=== PATIENT | female | born 1950 | race Caucasian/White ===

== ENCOUNTER → 2019-10-18 10:52 | Day surgery (SDC) | payer MEDICARE ==
[~2019-10-18 10:52] MED LIST: Buffered Lidocaine 1% SYRIN* 1 ML/SYRINGE INTRADERM ONE; Dexamethasone IV* 4 MG/ML 1 ML (4 MG) ONE; Gelfoam 12-7 ADSORBABL SPONGE* 1 EA SPONGE ONE; Lactated Ringers 1000 ML Bag* 1,000 ML IV SCH; Levalbuterol 1.25MG/0.5ML NEB ONE; Lidocaine 2% w/ EPI 1:200,000* 20 ML SDV VIAL ONE; Midazolam* 1 MG/ML 2 ML VIAL (2 MG) ONE; Naloxone* 0.4 MG/ML 1 ML VIAL IV PRN; Ondansetron INJ* 2 MG/ML VIAL IV PRN; Ondansetron INJ* 2 MG/ML VIAL ONE; Oxymetazoline 0.05% NASAL SPR* 15 ML BTL ONE; Propofol* 10 MG/ML 20 ML BTL ONE; Triamcinolone Acetonide* 40 MG/ML 1 ML VIAL ONE; fentaNYL* 50 MCG/ML 2 ML VIAL (100 MCG VIAL) IV PRN; fentaNYL* 50 MCG/ML 2 ML VIAL (100 MCG VIAL) ONE; oxyCODONE/Acetamin 5/325 MG* TAB PO PRN
[2019-10-18 17:16] VITALS: BP 138/80
--- NOTE | 2019-10-18 19:57 | OP ---
DATE OF OPERATION: 10/18/19 - [facility] DATE OF : 48 SURGEON: Dwight Bailey MD PRE-OP DIAGNOSIS: Left nasal mass with epistaxis. POST-OP DIAGNOSIS: Left nasal mass with epistaxis. OPERATIVE PROCEDURE: Excision of left inferior turbinate nasal mass. BRIEF HISTORY: This 69-year-old presented with a large exophytic nasal mass. DESCRIPTION OF PROCEDURE: The patient was taken to the operating room. General anesthetic was given to the patient, intubated with LMA. 2% lidocaine with epinephrine was infiltrated in nasal mucosa. A small incision and excision of the nasal mucosa was carried out along the turbinate. Down to the inferior turbinate bone and once the mass was removed, the area was cauterized and packed with Herman pack. The patient was then awakened, extubated and sent to the recovery room in stable condition. Instrument and sponge counts correct. Blood loss minimal. [id number]/CPS #: [id number] MTDD
== END | disposition home or self-care (01) ==
LOC: OR 10:52
PROVIDERS: ATTEND Otolaryngology
DX: J34.89 Other specified disorders of nose and nasal sinuses (principal); D18.01 Hemangioma of skin and subcutaneous tissue; R04.0 Epistaxis; Z85.3 Personal history of malignant neoplasm of breast; E78.00 Pure hypercholesterolemia, unspecified
CPT/HCPCS: 88305; 88341; 88342; A9270-GY; J1100; J1642; J2250; J2405; J2704; J3010; J3301

== ENCOUNTER 2019-10-22 17:22 | Emergency (ER) | payer MEDICARE ==
--- NOTE | 2019-10-22 17:40 | ED ---
HPI Febrile Illness - HPI Summary HPI Summary: Patient is a 69 y/o F w/ breast cancer w/ metastases to bones and lungs who presents to [facility] with complaints of fever, chills, congestion and cough. She states that she had nasal polyp removal surgery 10/18/19. Cancer has been present for the past seven years, patient is currently on chemotherapy with last treatment being 10/03/19. Oncologist is Dr. Grubbs. She denies sore throat, dysuria, abdominal pain, N/V/D, swelling and pain of BLE. Home medications and allergies are reviewed. Family members in the room. - History of Current Complaint Chief Complaint: EDFever Time Seen by Provider: 10/22/19 17:29 Hx Obtained From: Patient Onset/Duration: Still Present Timing: Constant Pain Intensity: 1 Pain Scale Used: 0-10 Numeric Aggravating Factors: Nothing Alleviating Factors: Nothing Associated Signs and Symptoms: Cough, Other: - negative - sore throat, dysuria, abdominal pain, N/V/D, swelling and pain of BLE; positive - fever, chills, congestion - Allergy/Home Medications Allergies/Adverse Reactions: Allergies Allergy/AdvReac Type Severity Reaction Status Date / Time No Known Allergies Allergy Verified 10/22/19 17:28 Home Medications: Home Medications Zoledronic Acid* [Zometa*] 4 mg IV Q84D 10/22/19 [History Confirmed 10/22/19] PMH/Surg Hx/FS Hx/Imm Hx Endocrine/Hematology History: Denies: Hx Diabetes, Hx Systemic Lupus Erythematosus Cardiovascular History: Denies: Hx Congestive Heart Failure, Hx Hypertension, Other Cardiovascular Problems/Disorders Respiratory History: Reports: Hx Lung Cancer Denies: Other Respiratory Problems/Disorders GI History: Reports: Hx Gastroesophageal Reflux Disease, Hx Hiatal Hernia Denies: Other GI Disorders History: Denies: Hx Dialysis, Hx Renal Disease, Other Problems/Disorders Musculoskeletal History: Reports: Hx Arthritis - LEFT KNEE Denies: Hx Rheumatoid Arthritis, Hx Osteoporosis, Other Musculoskeletal History Sensory History: Reports: Hx Contacts or Glasses Denies: Hx Hearing Aid Opthamlomology History: Reports: Hx Contacts or Glasses Neurological History: Reports: Other Neuro Impairments/Disorders - neuropathy left arm - Cancer History Cancer Type, Location and Year: LEFT BREAST 1989. METASTATIC TO LUNGS, BONE Hx Chemotherapy: Yes - CURRENT - Surgical History Surgery Procedure, Year, and Place: LEFT BREAST MASTECTOMY AND RECONSTRUCTION. APPENDECTOMY 2011 Hx Anesthesia Reactions: No Infectious Disease History: No Infectious Disease History: Denies: Traveled Outside the [place] in Last 30 Days - Family History Known Family History: Positive: Other - cancer - Social History Alcohol Use: None Substance Use Type: Reports: None Smoking Status (MU): Never Smoked Tobacco Have You Smoked in the Last Year: No Review of Systems Positive: Fever, Chills Negative: Sore Throat Respiratory: Other - positive - congestion Positive: Cough Negative: Abdominal Pain, Vomiting, Diarrhea, Nausea Negative: dysuria Musculoskeletal: Other - negative - BLE pain Negative: Edema - BLE All Other Systems Reviewed And Are Negative: Yes Physical Exam - Summary Physical Exam Summary: VITAL SIGNS: Reviewed. GENERAL: Patient is a well-developed, elderly, and nourished female who is lying comfortable in the stretcher. Patient is not in any acute respiratory distress. She is warm to touch. HEAD AND FACE: No signs of trauma. No ecchymosis, hematomas or skull depressions. No sinus tenderness. There is packing in the left nare. EYES: PERRLA, EOMI x 2, No injected conjunctiva, no nystagmus. EARS: Hearing grossly intact. Ear canals and tympanic membranes are within normal limits. MOUTH: Oropharynx within normal limits. NECK: Supple, trachea is midline, no adenopathy, no JVD, no carotid bruit, no c- spine tenderness, neck with full ROM. CHEST: Symmetric, no tenderness at palpation. LUNGS: Crackles to both bases of the lungs. No wheezing. CVS: Regular rate and rhythm, S1 and S2 present, no murmurs or gallops appreciated. ABDOMEN: Soft, non-tender. No signs of distention. No rebound, no guarding, and no masses palpated. Bowel sounds are normal. EXTREMITIES: FROM in all major joints, no edema, no cyanosis or clubbing. NEURO: Alert and oriented x 3. No acute neurological deficits. Speech is normal and follows commands. SKIN: Dry and warm to touch. Triage Information Reviewed: Yes Vital Signs On Initial Exam: Initial Vitals Temp Pulse Resp BP Pulse Ox 102.0 F 94 19 140/84 96 10/22/19 17:25 10/22/19 17:25 10/22/19 17:25 10/22/19 17:25 10/22/19 17:25 Vital Signs Reviewed: Yes Procedures - Sedation Patient Received Moderate/Deep Sedation with Procedure: No Diagnostics - Vital Signs Vital Signs Temp Pulse Resp BP Pulse Ox 10/22/19 17:25 102.0 F 94 19 140/84 96 - Laboratory Result Diagrams: 10/22/19 18:09 10/22/19 18:09 Lab Statement: Any lab studies that have been ordered have been reviewed, and results considered in the medical decision making process. - Radiology CXR Radiology Interpretation Completed By: ED Physician Summary of Radiographic Findings: Right middle and right lower infiltrate noted , pending official report. Re-Evaluation - Re-Evaluation First Eval Re-Evaluation Time: 17:42 Comment: Rectal temp of 102.4 F noted. Second Eval Re-Evaluation Time: 21:05 Comment: I discussed the findings and test results with the patient and the patients daughters and they agree with the plan. They will recommended to return to the emergency department if the patient continues to have fevers, weakness, decreased appetite and worsening of symptoms. They understand and agree. I will also recommended for the patient to follow up with Dr. Bailey. The patient is hemodynamically stable alert and oriented 3. Course/Dx - Course Assessment/Plan: This patient is a 69-year-old female who presents to the emergency department with a chief complaint of having a fever. She reports that the fever has gone up to 103. Patient reports that she had polyps removed from the left nostril by Dr. Bailey on 10/18/19. Blood work w/o a significant abnormality except for slight anemia, sodium 133, creatinine 1.07, total bilirubin 2.3, alkaline phosphatase 166, CRP of 19.9. Chest x-ray impression: I suspect right lower lobe and middle lobe infiltrate. Since the patient has productive cough and has abnormal findings it is evident that the patient has developed pneumonia. I discussed the case with Dr. Roberts from oncology and he recommended for the patient to be given Levaquin and discharge the patient home on a prescription for Levaquin for 10 days. CURB-65 is equal to 1. Therefore I believe that the patient can be treated for pneumonia as an outpatient. The patient will be discharged home with follow-up with Dr. Grubbs. I discussed the findings and test results with the patient and the patients daughters and they agree with the plan. They will recommended to return to the emergency department if the patient continues to have fevers, weakness, decreased appetite and worsening of symptoms. They understand and agree. I will also recommended for the patient to follow up with Dr. Bailey. The patient is hemodynamically stable alert and oriented 3. - Febrile Illness Differential Diagnoses: Bacteremia, Cellulitis, Pneumonia - Diagnoses Provider Diagnoses: Pneumonia - Provider Notifications Discussed Care Of Patient With: Nicholas Roberts Time Discussed With Above Provider: 19:32 Instructed by Provider To: Other - 1926 - Patient's case was discussed with Dr. Dan, he recommends placing patient on antibiotic. Oncology consult to be obtained. 1931 - Dr. Roberts recommends giving Levaquin and discharge to home with prescription for this medication and oncology follow up. Discharge ED - Sign-Out/Discharge Documenting (check all that apply): Patient Departure - discharge - Discharge Plan Condition: Stable Disposition: HOME Prescriptions: Levofloxacin TAB* [Levaquin TAB*] 750 mg PO DAILY #9 tab Patient Education Materials: Pneumonia (ED) Referrals: Ramesh Grubbs MD [Medical Doctor] - 3 Days Keven Moser MD [Primary Care Provider] - 3 Days Dwight Bailey MD [Medical Doctor] - 3 Days Additional Instructions: PLEASE RETURN TO ED FOR ANY NEW OR WORSENING SYMPTOMS. PLEASE FOLLOW UP WITH ENT DOCTOR, ONCOLOGY, AND YOUR PRIMARY CARE PHYSICIAN WITHIN THREE DAYS. - Billing Disposition and Condition Condition: STABLE Disposition: Home - Attestation Statements Document Initiated by Rai: Yes Documenting Scribe: LOUISE IRELAND Provider For Whom Rai is Documenting (Include Credential): VANDANA KUMAR MD Scribe Attestation: ILOUISE, scribed for VANDANA KUMAR MD on 10/23/19 at 1246. Scribe Documentation Reviewed: Yes Provider Attestation: The documentation as recorded by the LOUISE yeboah accurately reflects the service I personally performed and the decisions made by me, VANDANA KUMAR MD Status of Scribe Document: Viewed
[2019-10-22] MEDS ORDERED: Acetaminophen TAB* 325 MG PO ONE (17:41)
[2019-10-22] MEDS ORDERED: NS 0.9% 1000 ML** 1,000 ML IV ONE (17:41)
[2019-10-22 18:18] LABS: ABS Basophils 0.1 10^3/ul (0-0.2); ABS Eosinophils 0.2 10^3/ul (0-0.6); ABS Lymphocytes 1.4 10^3/ul (1.0-4.8); ABS Monocytes 1.4 10^3/ul (0-0.8); ABS Neutrophils 6.4 10^3/ul (1.5-7.7); Eosinophil % 1.8 %; Hematocrit 29 % (35-47); Hemoglobin 9.6 g/dL (12.0-16.0); Lymphocyte % 14.5 %; Mean Corpuscular HGB Conc 33 g/dL (31-36); Mean Corpuscular Hemoglobin 27 pg (27-31); Mean Corpuscular Volume 83 fL (80-97); Platelet Count 154 10^3/uL (150-450); Red Cell Distribution Width 23 % (10-15); White Blood Count 9.5 10^3/uL (3.5-10.8)
[2019-10-22 18:25] LABS: Activated Partial Thrombo Time 67.3 seconds (26.0-38.0); INR 1.65 (0.82-1.09)
[2019-10-22 18:26] LABS: Fibrinogen 275.6 mg/dL (110.8-404.3)
--- OUTSIDE RECORDS SUMMARY | 2019-10-22 18:33 | XMS REPORT | Continuity of Care Document ---
:1950 External Reference #:[id number] Author Name Dwight Bailey MD Address [address] [place] [address] Care Team Providers Name Role Phone Santiago Zayas N.P. Care Team Information Transfer Car Operator [phone] Keven Moser M.D. Care Team Information Transfer Car Operator [phone] Problems Description No Information Available Social History Type Date Description Comments Sex Unknown Tobacco Use Start: Unknown Never Smoked Cigarettes Tobacco Use Start: Unknown Never Smoked Cigars Tobacco Use Start: Unknown Never Smoked A Pipe Smokeless Tobacco Never Used Smokeless Tobacco ETOH Use Denies alcohol use Allergies, Adverse Reactions, Alerts Description No Known Drug Allergies Medications Active Medications SIG Qnty Indications Ordering Provider Date Valacyclovir HCL as directed Ramesh Grubbs 1gm Tablets Merrick Pravastatin Sodium as directed Ehsan Sin, 40mg Tablets Keven Gabapentin as directed Shanae Llanos NP 300mg Capsules Chlorhexidine Gluconate daily Akhil Hickman D.D.S 0.12% Solution Immunizations Description No Information Available Vital Signs Date Vital Result Comment 09/25/2019 11:12am Weight 163.00 lb Weight 73.937 kg Height 70 inches 5'10" Height in cm's 177.8 cm BMI (Body Mass Index) 23.4 kg/m2 Results Description No Information Available Procedures Date Code Description Status 09/25/2019 84826 Nasal Endoscopy, Diagnostic Completed Medical Devices Description No Information Available Encounters Type Date Location Provider Dx Diagnosis Office Visit 09/25/2019 11:00a [place],After 11/29/07 Dwight Bailey MD R04.0 Epistaxis D49.1 Neoplasm of unspecified behavior of respiratory system Assessments Date Code Description Provider 09/25/2019 R04.0 Epistaxis Dwight Bailey MD 09/25/2019 D49.1 Neoplasm of unspecified behavior of respiratory Dwight Bailey MD system Plan of Treatment Future Appointment(s):10/30/2019 10:30 am - Dwight Bailey MD at [place],After 9:45 am - Dwight Bailey MD at [facility] O R1 - Dwight Bailey MDR04.0 KugujkzcyC13.1 Neoplasm of unspecified behavior of respiratory systemComments:Patient with epistaxis left side, endoscopic examination shows a exophytic lobulated mass of the anterior one third of the inferior turbinate. After getting the patient's consent. I believe the we could proceed to excision biopsy for management of this lesion which I suspect will continue to bleed.Scheduled for excision of left nasal mass. ( Possible endoscopic approach) Functional Status Description No Information Available Mental Status Description No Information Available Referrals Description No Information Available
[2019-10-22 18:34] LABS: Albumin 2.8 g/dL (3.2-5.2); Calcium 8.6 mg/dL (8.6-10.3); Potassium 3.7 mmol/L (3.5-5.0); Total Bilirubin 2.3 mg/dL (0.2-1.0)
[2019-10-22 18:35] LABS: Troponin I 0.02 ng/mL (<0.03)
[2019-10-22 18:40] LABS: Albumin/Globulin Ratio 0.8 (1-3); C Reactive Protein 19.93 mg/L (<8.01); EGFR African American 61.3 (>60); EGFR Non-African American 50.7 (>60); Globulin 3.6 g/dL (2-4); Total Protein 6.4 g/dL (6.4-8.9)
[2019-10-22] MEDS ORDERED: cefTRIAXone(*) 1 GM in NS 0.9% 50 ML* 50 ML IVPB ONE (19:27)
[2019-10-22] MEDS ORDERED: Levofloxacin 750 MG IVPREMIX(* 750 MG/150 ML BAG IVPB ONE (19:32)
[2019-10-22 19:44] LABS: Erythrocyte Sed Rate 28 mm/Hr (0-29)
[2019-10-22 21:21] VITALS: BP 99/55
== END 2019-10-22 21:20 | disposition home or self-care (01) ==
LOC: ED 17:22
DX: J18.9 Pneumonia, unspecified organism (principal); C50.912 Malignant neoplasm of unspecified site of left female breast; C78.02 Secondary malignant neoplasm of left lung; C78.01 Secondary malignant neoplasm of right lung; C79.51 Secondary malignant neoplasm of bone; Z79.899 Other long term (current) drug therapy; K21.9 Gastro-esophageal reflux disease without esophagitis; K44.9 Diaphragmatic hernia without obstruction or gangrene
CPT/HCPCS: 36415; 71046; 80053; 82550; 83605; 83880; 84484; 85025; 85384; 85610; 85652; 85730; 86140; 87040; 96365; 96375; 99284; A9270-GY; J1642

== ENCOUNTER 2020-09-17 21:18 | Inpatient (IN) ==
[2020-09-17] MEDS ORDERED: NS 0.9% 1000 ml BAG 1,000 ML IV.FLUID IV ONE (21:32)
[2020-09-17] MEDS ORDERED: Piperacillin/Tazobac ADVAN 3.375 GM in NS 0.9% 100 ml BAG 100 ML IVPB ONE (21:32)
[2020-09-17] MEDS ORDERED: Albuterol/Ipratropium NEB.SOL (2.5/0.5 MG) 3 ML NEB.SOLN INH ONE (21:58)
[2020-09-17] MEDS ORDERED: Vancomycin 1,500 MG in NS 0.9% 250 ml 250 ML IVPB ONE (22:00)
[2020-09-17 23:05] LABS: ABS Eosinophils 0.1 10^3/ul (0-0.6); ABS Lymphocytes 0.9 10^3/ul (1.0-4.8); ABS Monocytes 0.6 10^3/ul (0-0.8); ABS Neutrophils 6.4 10^3/ul (1.5-7.7); Eosinophil % 0.7 %; Hematocrit 22 % (35-47); Hemoglobin 7.6 g/dL (12.0-16.0); Lymphocyte % 11.7 %; Mean Corpuscular HGB Conc 34 g/dL (31-36); Mean Corpuscular Hemoglobin 32 pg (27-31); Mean Corpuscular Volume 93 fL (80-97); Mean Platelet Volume 7.7 fL (7.4-10.4); Platelet Count 192 10^3/uL (150-450); Red Cell Distribution Width 25 % (10-15); White Blood Count 8.1 10^3/uL (3.5-10.8)
[2020-09-17 23:18] LABS: Albumin 2.3 g/dL (3.2-5.2); Albumin/Globulin Ratio 0.9 (1-3); BUN/Creatinine Ratio 17.7 (8-20); C Reactive Protein 22.38 mg/L (<8.01); Calcium 7.9 mg/dL (8.6-10.3); EGFR African American 69.3 (>60); EGFR Non-African American 57.3 (>60); Globulin 2.7 g/dL (2-4); Potassium 3.7 mmol/L (3.5-5.0); Total Bilirubin 2.5 mg/dL (0.2-1.0)
[2020-09-17 23:29] LABS: Influenza A Molecular Negative (Negative); Influenza B Molecular Negative (Negative)
[2020-09-18 01:03] LABS: Activated Partial Thrombo Time 31.9 seconds (26.0-38.0); INR 1.93 (0.82-1.09)
[2020-09-18] MEDS ORDERED: Iodixanol (CONTRAST) 320 MG/ML 100 ML SDV IV ONE (01:09)
[2020-09-18] MEDS ORDERED: [UNRECOGNIZED DRUG - OTHER] IV SCH (02:15)
[2020-09-18] MEDS ORDERED: NS 0.9% 1000 ml BAG 1,000 ML IV SCH (02:15)
[2020-09-18] MEDS ORDERED: ZOSYN 3.375 GM Q8H per EXTENDED INFUSION IV SCH (03:30)
[2020-09-18 05:14] LABS: % Iron Saturation 55 % (15-55); Iron 143 ug/dL (50-212); Total Iron Binding Capacity 258 mcg/dL (250-450); Transferrin 184 mg/dL (203-362); Unsaturated Iron Binding < 243 ug/dL
[2020-09-18] MEDS: Enoxaparin 40 MG/0.4 ML SYR SUBCUT SCH (05:46)
[2020-09-18] MEDS ORDERED: Vancomycin per Pharmacy 1 EA NOTE FOLLOW UP SCH (06:00)
[2020-09-18] MEDS ORDERED: Zosyn per Pharmacy NOTE FOLLOW UP SCH (06:00)
[2020-09-18 08:53] LABS: LDH 175 U/L (140-271)
[2020-09-18] MEDS: Cholecalciferol (VIT D3) 1,000 unit TAB PO SCH (09:05)
[2020-09-18] MEDS: Multivitamins/Minerals TAB PO SCH (09:05)
[2020-09-18 09:33] LABS: Hematocrit for Retic CNT 20 % (35-47); Immature Retic Fraction 0.49; RBC Retic Count 2.12 10^6/uL (3.70-4.87)
[2020-09-18 10:33] LABS: Red Blood Count 2.12 10^6 /uL (3.70-4.87)
[2020-09-18 10:34] LABS: Hematocrit 20 % (35-47); Hemoglobin 6.7 g/dL (12.0-16.0); Mean Corpuscular HGB Conc 33 g/dL (31-36); Mean Corpuscular Hemoglobin 32 pg (27-31); Mean Corpuscular Volume 95 fL (80-97); Mean Platelet Volume 7.5 fL (7.4-10.4); Platelet Count 151 10^3/uL (150-450); Red Cell Distribution Width 26 % (10-15); White Blood Count 6.1 10^3/uL (3.5-10.8)
[2020-09-18] MEDS: Vancomycin 1000 MG in NS 0.9% 250 ML IVPB SCH ×2 (10:39→23:04)
[2020-09-18 10:55] LABS: ABS Eosinophils 0.1 10^3/ul (0-0.6); ABS Lymphocytes 0.9 10^3/ul (1.0-4.8); ABS Monocytes 0.4 10^3/ul (0-0.8); ABS Neutrophils 4.6 10^3/ul (1.5-7.7); Eosinophil % 0.8 %; Lymphocyte % 15.5 %
[2020-09-18] MEDS: DOXYcycline 100 MG in NS 0.9% 250 ml 250 ML IVPB SCH (12:58)
[2020-09-18 18:01] LABS: Urine Appearance Cloudy; Urine Bilirubin Negative (Negative); Urine Blood Negative (Negative); Urine Color Yellow; Urine Glucose Negative (Negative); Urine Ketones Negative (Negative); Urine Nitrite Negative (Negative); Urine Protein Negative (Negative); Urine Specific Gravity 1.042 (1.010-1.030); Urine Urobilinogen Negative (Negative)
[2020-09-18 23:08] LABS: Urine White Blood Cell 1+(6-10/hpf) (Absent)
[2020-09-18 23:09] LABS: Urine Bacteria Absent (Absent); Urine Red Blood Cell Absent (Absent); Urine Squamous Epithelial Cell Present (Absent)
[2020-09-19] MEDS: DOXYcycline 100 MG in NS 0.9% 250 ml 250 ML IVPB SCH ×2 (01:11→13:30)
[2020-09-19 04:59] LABS: Hematocrit 21 % (35-47); Mean Corpuscular HGB Conc 34 g/dL (31-36); Mean Corpuscular Hemoglobin 31 pg (27-31); Mean Corpuscular Volume 92 fL (80-97); Mean Platelet Volume 7.4 fL (7.4-10.4); Platelet Count 171 10^3/uL (150-450); Red Blood Count 2.24 10^6 /uL (3.70-4.87); Red Cell Distribution Width 24 % (10-15)
[2020-09-19 05:07] LABS: Albumin/Globulin Ratio 0.9 (1-3); BUN/Creatinine Ratio 26.9 (8-20); Calcium 7.3 mg/dL (8.6-10.3); EGFR African American 88.1 (>60); EGFR Non-African American 72.8 (>60); Globulin 2.3 g/dL (2-4); Magnesium 1.6 mg/dL (1.9-2.7); Potassium 3.8 mmol/L (3.5-5.0); Total Bilirubin 5.4 mg/dL (0.2-1.0); Total Protein 4.3 g/dL (6.4-8.9)
[2020-09-19] MEDS: Enoxaparin 40 MG/0.4 ML SYR SUBCUT SCH (06:21)
[2020-09-19] MEDS: Cholecalciferol (VIT D3) 1,000 unit TAB PO SCH (08:16)
[2020-09-19] MEDS: Multivitamins/Minerals TAB PO SCH (08:16)
[2020-09-19] MEDS ORDERED: Magnesium Sulfate IV 3 GM in NS 0.9% 100 ml BAG 100 ML IVPB ONE (08:30)
[2020-09-19] MEDS ORDERED: Influenza VAC *QUAD* 2020-21* 0.5 ML SYRINGE IM ONE (09:00)
[2020-09-19 09:27] LABS: ABS Basophils 0.1 10^3/ul (0-0.2); ABS Eosinophils 0.3 10^3/ul (0-0.6); ABS Lymphocytes 1.2 10^3/ul (1.0-4.8); ABS Monocytes 0.5 10^3/ul (0-0.8); ABS Neutrophils 2.9 10^3/ul (1.5-7.7); Lymphocyte % 23.5 %
[2020-09-19] MEDS ORDERED: Vancomycin Trough Check NOTE FOLLOW UP ONE (10:30)
[2020-09-19] MEDS: Vancomycin 1000 MG in NS 0.9% 250 ML IVPB SCH (13:36)
[2020-09-19] MEDS: Vancomycin 1,000 MG in NS 0.9% 250 ml 250 ML IVPB SCH (15:52)
[2020-09-19 17:22] LABS: Immature Retic Fraction 0.25; RBC Retic Count 2.53 10^6/uL (3.70-4.87); Red Blood Count 2.53 10^6 /uL (3.70-4.87)
[2020-09-19 17:23] LABS: ABS Basophils 0.1 10^3/ul (0-0.2); ABS Eosinophils 0.3 10^3/ul (0-0.6); ABS Lymphocytes 1.5 10^3/ul (1.0-4.8); ABS Monocytes 0.7 10^3/ul (0-0.8); ABS Neutrophils 4.1 10^3/ul (1.5-7.7); Corrected Retic Count 0.1 % (0.5-1.5); Eosinophil % 4.1 %; Hematocrit 23 % (35-47); Hematocrit for Retic CNT 23 % (35-47); Hemoglobin 7.8 g/dL (12.0-16.0); Lymphocyte % 21.9 %; Mean Corpuscular HGB Conc 33 g/dL (31-36); Mean Corpuscular Hemoglobin 31 pg (27-31); Mean Corpuscular Volume 93 fL (80-97); Mean Platelet Volume 7.9 fL (7.4-10.4); Platelet Count 236 10^3/uL (150-450); Red Cell Distribution Width 24 % (10-15); White Blood Count 6.6 10^3/uL (3.5-10.8)
[2020-09-19] MEDS ORDERED: Pantoprazole VIAL 40 MG VIAL ONE (19:59)
[2020-09-19] MEDS: Pantoprazole VIAL 40 MG VIAL IV SCH (20:13)
[2020-09-20] MEDS: DOXYcycline 100 MG in NS 0.9% 250 ml 250 ML IVPB SCH ×2 (02:16→14:02)
[2020-09-20] MEDS: Vancomycin 1,000 MG in NS 0.9% 250 ml 250 ML IVPB SCH ×2 (03:49→15:35)
[2020-09-20 07:04] LABS: Hematocrit 18 % (35-47); Hemoglobin 6.1 g/dL (12.0-16.0); Mean Corpuscular HGB Conc 34 g/dL (31-36); Mean Corpuscular Hemoglobin 31 pg (27-31); Mean Corpuscular Volume 92 fL (80-97); Mean Platelet Volume 7.4 fL (7.4-10.4); Platelet Count 172 10^3/uL (150-450); Red Blood Count 1.96 10^6 /uL (3.70-4.87); Red Cell Distribution Width 24 % (10-15); White Blood Count 3.2 10^3/uL (3.5-10.8)
[2020-09-20 07:11] LABS: Albumin 1.9 g/dL (3.2-5.2); Albumin/Globulin Ratio 0.8 (1-3); BUN/Creatinine Ratio 24.1 (8-20); Calcium 7.6 mg/dL (8.6-10.3); EGFR Non-African American 67.8 (>60); Globulin 2.4 g/dL (2-4); Magnesium 1.8 mg/dL (1.9-2.7); Potassium 3.4 mmol/L (3.5-5.0); Total Bilirubin 2.3 mg/dL (0.2-1.0); Total Protein 4.3 g/dL (6.4-8.9)
[2020-09-20] MEDS ORDERED: Potassium Chlor 20 meq TAB.ER PO ONE (07:12)
[2020-09-20] MEDS ORDERED: Magnesium Sulfate IV 1GM/100ML 1 GM/100 ML BAG IV ONE (07:13)
[2020-09-20 08:13] LABS: ABS Basophils 0.1 10^3/ul (0-0.2); ABS Eosinophils 0.2 10^3/ul (0-0.6); ABS Lymphocytes 0.9 10^3/ul (1.0-4.8); ABS Monocytes 0.4 10^3/ul (0-0.8); ABS Neutrophils 1.7 10^3/ul (1.5-7.7); Eosinophil % 6.8 %; Lymphocyte % 27.5 %; Nucleated Red Blood Cells % 0.1
[2020-09-20 08:14] LABS: Schistocytes 1+
[2020-09-20 08:15] LABS: Tear Drop Cells 1+
[2020-09-20] MEDS: Multivitamins/Minerals TAB PO SCH (09:59)
[2020-09-20] MEDS: Cholecalciferol (VIT D3) 1,000 unit TAB PO SCH (10:00)
[2020-09-20] MEDS: Pantoprazole VIAL 40 MG VIAL IV SCH ×2 (14:13→20:23)
[2020-09-20 15:33] LABS: ABS Basophils 0.1 10^3/ul (0-0.2); ABS Eosinophils 0.2 10^3/ul (0-0.6); ABS Lymphocytes 0.9 10^3/ul (1.0-4.8); ABS Monocytes 0.4 10^3/ul (0-0.8); ABS Neutrophils 1.8 10^3/ul (1.5-7.7); Eosinophil % 6.7 %; Hematocrit 22 % (35-47); Hemoglobin 7.2 g/dL (12.0-16.0); Lymphocyte % 25.4 %; Mean Corpuscular HGB Conc 34 g/dL (31-36); Mean Corpuscular Hemoglobin 31 pg (27-31); Mean Corpuscular Volume 93 fL (80-97); Platelet Count 188 10^3/uL (150-450); Red Blood Count 2.31 10^6 /uL (3.70-4.87); Red Cell Distribution Width 22 % (10-15); White Blood Count 3.4 10^3/uL (3.5-10.8)
[2020-09-20 23:36] LABS: ABS Basophils 0.1 10^3/ul (0-0.2); ABS Eosinophils 0.2 10^3/ul (0-0.6); ABS Lymphocytes 0.9 10^3/ul (1.0-4.8); ABS Monocytes 0.4 10^3/ul (0-0.8); ABS Neutrophils 2.2 10^3/ul (1.5-7.7); Eosinophil % 5.6 %; Hematocrit 24 % (35-47); Hemoglobin 8.3 g/dL (12.0-16.0); Lymphocyte % 24.7 %; Mean Corpuscular HGB Conc 34 g/dL (31-36); Mean Corpuscular Hemoglobin 31 pg (27-31); Mean Corpuscular Volume 91 fL (80-97); Mean Platelet Volume 7.1 fL (7.4-10.4); Platelet Count 199 10^3/uL (150-450); Red Blood Count 2.67 10^6 /uL (3.70-4.87); Red Cell Distribution Width 20 % (10-15); White Blood Count 3.8 10^3/uL (3.5-10.8)
[2020-09-21] MEDS: DOXYcycline 100 MG in NS 0.9% 250 ml 250 ML IVPB SCH ×2 (02:00→12:36)
[2020-09-21] MEDS: Vancomycin 1,000 MG in NS 0.9% 250 ml 250 ML IVPB SCH ×2 (03:00→13:54)
[2020-09-21 05:51] LABS: INR 1.52 (0.82-1.09)
[2020-09-21 06:08] LABS: ABS Basophils 0.1 10^3/ul (0-0.2); ABS Eosinophils 0.2 10^3/ul (0-0.6); ABS Monocytes 0.3 10^3/ul (0-0.8); ABS Neutrophils 1.7 10^3/ul (1.5-7.7); Eosinophil % 6.7 %; Hematocrit 23 % (35-47); Hemoglobin 7.8 g/dL (12.0-16.0); Mean Corpuscular HGB Conc 34 g/dL (31-36); Mean Corpuscular Hemoglobin 32 pg (27-31); Mean Corpuscular Volume 93 fL (80-97); Mean Platelet Volume 7.3 fL (7.4-10.4); Nucleated Red Blood Cells % 0.2; Platelet Count 172 10^3/uL (150-450); Red Blood Count 2.49 10^6 /uL (3.70-4.87); Red Cell Distribution Width 19 % (10-15); White Blood Count 3.3 10^3/uL (3.5-10.8)
[2020-09-21 06:23] LABS: Albumin/Globulin Ratio 0.9 (1-3); Calcium 7.4 mg/dL (8.6-10.3); EGFR African American 85.6 (>60); EGFR Non-African American 70.7 (>60); Globulin 2.2 g/dL (2-4); Indirect Bilirubin 1.5 mg/dL (0.3-1.0); Potassium 3.8 mmol/L (3.5-5.0); Total Bilirubin 2.1 mg/dL (0.2-1.0); Total Protein 4.2 g/dL (6.4-8.9)
[2020-09-21] MEDS: Cholecalciferol (VIT D3) 1,000 unit TAB PO SCH (08:10)
[2020-09-21] MEDS: Multivitamins/Minerals TAB PO SCH (08:10)
[2020-09-21] MEDS: Pantoprazole VIAL 40 MG VIAL IV SCH ×2 (08:12→23:50)
[2020-09-22] MEDS: DOXYcycline 100 MG in NS 0.9% 250 ml 250 ML IVPB SCH ×2 (00:06→12:25)
[2020-09-22] MEDS: Vancomycin 1,000 MG in NS 0.9% 250 ml 250 ML IVPB SCH ×2 (01:37→16:46)
[2020-09-22 05:57] LABS: Hematocrit 24 % (35-47); Hemoglobin 7.8 g/dL (12.0-16.0); Mean Corpuscular HGB Conc 33 g/dL (31-36); Mean Corpuscular Hemoglobin 31 pg (27-31); Mean Corpuscular Volume 93 fL (80-97); Mean Platelet Volume 7.4 fL (7.4-10.4); Platelet Count 168 10^3/uL (150-450); Red Blood Count 2.53 10^6 /uL (3.70-4.87); Red Cell Distribution Width 20 % (10-15); White Blood Count 2.8 10^3/uL (3.5-10.8)
[2020-09-22 07:47] LABS: Tear Drop Cells 1+
[2020-09-22 07:48] LABS: ABS Neutrophils 1.8 10^3/ul (1.5-7.7)
[2020-09-22 07:49] LABS: ABS Basophils 0.1 10^3/ul (0-0.2); ABS Eosinophils 0.1 10^3/ul (0-0.6)
[2020-09-22] MEDS: Pantoprazole VIAL 40 MG VIAL IV SCH ×2 (10:27→19:57)
[2020-09-22] MEDS: Multivitamins/Minerals TAB PO SCH (10:28)
[2020-09-22] MEDS: Cholecalciferol (VIT D3) 1,000 unit TAB PO SCH (10:28)
[2020-09-22] MEDS ORDERED: Vancomycin Trough Check NOTE FOLLOW UP ONE (13:00)
[2020-09-22 14:34] LABS: ABS Basophils 0.1 10^3/ul (0-0.2); ABS Eosinophils 0.1 10^3/ul (0-0.6); ABS Lymphocytes 0.9 10^3/ul (1.0-4.8); ABS Monocytes 0.4 10^3/ul (0-0.8); ABS Neutrophils 2.1 10^3/ul (1.5-7.7); Eosinophil % 4.1 %; Hematocrit 26 % (35-47); Hemoglobin 8.8 g/dL (12.0-16.0); Lymphocyte % 26.2 %; Mean Corpuscular HGB Conc 34 g/dL (31-36); Mean Corpuscular Hemoglobin 31 pg (27-31); Mean Corpuscular Volume 93 fL (80-97); Mean Platelet Volume 7.4 fL (7.4-10.4); Nucleated Red Blood Cells % 0.1; Platelet Count 194 10^3/uL (150-450); Red Blood Count 2.81 10^6 /uL (3.70-4.87); Red Cell Distribution Width 20 % (10-15); White Blood Count 3.6 10^3/uL (3.5-10.8)
[2020-09-22 14:46] LABS: EGFR African American 89.4 (>60); EGFR Non-African American 73.9 (>60)
[2020-09-23] MEDS: DOXYcycline 100 MG in NS 0.9% 250 ml 250 ML IVPB SCH ×2 (01:41→20:03)
[2020-09-23] MEDS: Vancomycin 1,000 MG in NS 0.9% 250 ml 250 ML IVPB SCH ×2 (02:44→20:04)
[2020-09-23 06:07] LABS: ABS Basophils 0.1 10^3/ul (0-0.2); ABS Eosinophils 0.2 10^3/ul (0-0.6); ABS Lymphocytes 1.4 10^3/ul (1.0-4.8); ABS Monocytes 0.4 10^3/ul (0-0.8); ABS Neutrophils 1.8 10^3/ul (1.5-7.7); Eosinophil % 4.5 %; Hematocrit 25 % (35-47); Hemoglobin 8.6 g/dL (12.0-16.0); Lymphocyte % 36.3 %; Mean Corpuscular HGB Conc 34 g/dL (31-36); Mean Corpuscular Hemoglobin 31 pg (27-31); Mean Corpuscular Volume 92 fL (80-97); Mean Platelet Volume 7.3 fL (7.4-10.4); Platelet Count 199 10^3/uL (150-450); Red Blood Count 2.76 10^6 /uL (3.70-4.87); Red Cell Distribution Width 20 % (10-15); White Blood Count 3.9 10^3/uL (3.5-10.8)
[2020-09-23] MEDS: Pantoprazole VIAL 40 MG VIAL IV SCH (07:48)
[2020-09-23] MEDS ORDERED: Midazolam 10 mg/10 ml VIAL 1 mg/ml 10 ml VIAL (10 mg) ONE (09:17)
[2020-09-23] MEDS ORDERED: fentaNYL 100 mcg/2 ml 50 MCG/ML VIAL ONE (09:17)
[2020-09-23] MEDS: Cholecalciferol (VIT D3) 1,000 unit TAB PO SCH (15:32)
[2020-09-23] MEDS: Multivitamins/Minerals TAB PO SCH (15:33)
[2020-09-23 19:46] VITALS: BP 116/71
[2020-09-25 14:06] LABS: Mycoplasma pneumoniae IgG Ab Positive (Negative); Mycoplasma pneumoniae IgM Ab Negative (Negative)
== END 2020-09-23 16:30 | disposition home or self-care (01) | DRG 871 ==
LOC: ED 21:18 → MED 09-18 02:00
PROVIDERS: ADMIT Internal Medicine; ATTEND Internal Medicine

== ENCOUNTER 2020-10-20 16:23 | Inpatient (IN) ==
[2020-10-20 19:15] LABS: Hematocrit 17 % (35-47); Mean Corpuscular HGB Conc 34 g/dL (31-36); Mean Corpuscular Hemoglobin 33 pg (27-31); Mean Corpuscular Volume 96 fL (80-97); Mean Platelet Volume 8.5 fL (7.4-10.4); Platelet Count 114 10^3/uL (150-450); Red Blood Count 1.81 10^6 /uL (3.70-4.87); Red Cell Distribution Width 21 % (10-15); White Blood Count 4.6 10^3/uL (3.5-10.8)
[2020-10-20 19:19] LABS: INR 1.87 (0.82-1.09)
[2020-10-20 19:29] LABS: Albumin 2.4 g/dL (3.2-5.2); BUN/Creatinine Ratio 37.3 (8-20); Calcium 8.5 mg/dL (8.6-10.3); EGFR African American 54.6 (>60); EGFR Non-African American 45.2 (>60); Globulin 2.5 g/dL (2-4); Magnesium 1.7 mg/dL (1.9-2.7); Potassium 3.9 mmol/L (3.5-5.0); Total Bilirubin 2.5 mg/dL (0.2-1.0); Total Protein 4.9 g/dL (6.4-8.9)
[2020-10-20 19:30] LABS: Troponin I 0.01 ng/mL (<0.03)
[2020-10-20 19:46] LABS: ABS Basophils 0.2 10^3/ul (0-0.2); ABS Eosinophils 0.1 10^3/ul (0-0.6); ABS Monocytes 0.3 10^3/ul (0-0.8); Eosinophil % 2.8 %; Lymphocyte % 21.9 %
[2020-10-20] MEDS ORDERED: Ondansetron 4 mg VIAL 2 MG/ML 2 ml VIAL IV PRN (21:52)
[2020-10-21] MEDS: Pantoprazole VIAL 40 MG VIAL IV SCH ×3 (00:09→23:02)
[2020-10-21] MEDS ORDERED: Magnesium Sulfate 2 gm BAG 2 GM/50 ML BAG IVPB ONE (00:21)
[2020-10-21 06:31] LABS: Hematocrit 19 % (35-47); Hemoglobin 6.7 g/dL (12.0-16.0); Mean Corpuscular HGB Conc 35 g/dL (31-36); Mean Corpuscular Hemoglobin 32 pg (27-31); Mean Corpuscular Volume 91 fL (80-97); Mean Platelet Volume 7.9 fL (7.4-10.4); Platelet Count 76 10^3/uL (150-450); Red Blood Count 2.09 10^6 /uL (3.70-4.87); Red Cell Distribution Width 19 % (10-15); White Blood Count 3.9 10^3/uL (3.5-10.8)
[2020-10-21 06:33] LABS: INR 1.92 (0.82-1.09)
[2020-10-21 06:39] LABS: Calcium 7.8 mg/dL (8.6-10.3); EGFR African American 62.5 (>60); EGFR Non-African American 51.7 (>60); Potassium 3.5 mmol/L (3.5-5.0)
[2020-10-21 06:40] LABS: Urine Appearance Clear; Urine Bilirubin Negative (Negative); Urine Blood Negative (Negative); Urine Color Yellow; Urine Glucose Negative (Negative); Urine Ketones Negative (Negative); Urine Nitrite Negative (Negative); Urine Protein Negative (Negative); Urine Specific Gravity 1.021 (1.010-1.030); Urine Urobilinogen Negative (Negative)
[2020-10-21 06:53] LABS: Urine Bacteria Absent (Absent); Urine Red Blood Cell 1+(3-5/hpf) (Absent); Urine Squamous Epithelial Cell Present (Absent); Urine White Blood Cell 3+(>20/hpf) (Absent)
[2020-10-21 06:56] LABS: Magnesium 2.1 mg/dL (1.9-2.7)
[2020-10-21 07:24] LABS: ABS Eosinophils 0.3 10^3/ul (0-0.6); ABS Neutrophils 2.7 10^3/ul (1.5-7.7)
[2020-10-21 09:25] LABS: Albumin 1.9 g/dL (3.2-5.2); Globulin 1.9 g/dL (2-4); Indirect Bilirubin 2.4 mg/dL (0.3-1.0); Total Bilirubin 3.2 mg/dL (0.2-1.0); Total Protein 3.8 g/dL (6.4-8.9)
[2020-10-21] MEDS: Chlorhexidine MOUTHWASH 0.12% 15 ML UDC TOPICAL SCH ×2 (10:14→21:47)
[2020-10-21] MEDS ORDERED: Iodixanol (CONTRAST) 320 MG/ML 100 ML SDV IV ONE (13:31)
[2020-10-21 15:11] LABS: Hematocrit 24 % (35-47); Hemoglobin 8.3 g/dL (12.0-16.0)
[2020-10-21] MEDS ORDERED: PEG 3000 GI LAVAGE 1 GALLON PO ONE (18:00)
[2020-10-22 06:53] LABS: ABS Basophils 0.1 10^3/ul (0-0.2); ABS Eosinophils 0.3 10^3/ul (0-0.6); ABS Monocytes 0.3 10^3/ul (0-0.8); ABS Neutrophils 1.9 10^3/ul (1.5-7.7); Hematocrit 25 % (35-47); Hemoglobin 8.4 g/dL (12.0-16.0); Lymphocyte % 26.8 %; Mean Corpuscular HGB Conc 34 g/dL (31-36); Mean Corpuscular Hemoglobin 31 pg (27-31); Mean Corpuscular Volume 91 fL (80-97); Mean Platelet Volume 8.2 fL (7.4-10.4); Nucleated Red Blood Cells % 0.1; Platelet Count 103 10^3/uL (150-450); Red Blood Count 2.71 10^6 /uL (3.70-4.87); Red Cell Distribution Width 19 % (10-15); White Blood Count 3.6 10^3/uL (3.5-10.8)
[2020-10-22 07:15] LABS: Albumin 2.2 g/dL (3.2-5.2); Calcium 8.1 mg/dL (8.6-10.3); EGFR African American 66.1 (>60); EGFR Non-African American 54.7 (>60); Globulin 2.3 g/dL (2-4); Magnesium 1.7 mg/dL (1.9-2.7); Potassium 3.1 mmol/L (3.5-5.0); Total Bilirubin 3.7 mg/dL (0.2-1.0); Total Protein 4.5 g/dL (6.4-8.9)
[2020-10-22] MEDS: Chlorhexidine MOUTHWASH 0.12% 15 ML UDC TOPICAL SCH ×2 (07:35→22:24)
[2020-10-22] MEDS ORDERED: Magnesium Sulfate IV 1GM/100ML 1 GM/100 ML BAG IV ONE (08:00)
[2020-10-22 09:26] LABS: Activated Partial Thrombo Time 30.5 seconds (26.0-38.0); Fibrinogen 148.6 mg/dL (110.8-404.3)
[2020-10-22] MEDS: KCL 20 MEQ/100 ML IVPREMIX 20 MEQ/100 ML BAG IV SCH ×2 (09:37→12:07)
[2020-10-22] MEDS: Pantoprazole VIAL 40 MG VIAL IV SCH ×2 (12:02→23:05)
[2020-10-22] MEDS ORDERED: fentaNYL 100 mcg/2 ml 50 MCG/ML VIAL ONE (12:39)
[2020-10-22] MEDS ORDERED: Midazolam 10 mg/10 ml VIAL 1 mg/ml 10 ml VIAL (10 mg) ONE (12:40)
[2020-10-22 17:15] LABS: BUN/Creatinine Ratio 30.2 (8-20); Calcium 7.8 mg/dL (8.6-10.3); EGFR African American 78.7 (>60); Magnesium 1.7 mg/dL (1.9-2.7); Potassium 3.3 mmol/L (3.5-5.0)
[2020-10-23 06:28] LABS: ABS Basophils 0.1 10^3/ul (0-0.2); ABS Eosinophils 0.2 10^3/ul (0-0.6); ABS Lymphocytes 0.6 10^3/ul (1.0-4.8); ABS Monocytes 0.3 10^3/ul (0-0.8); ABS Neutrophils 1.1 10^3/ul (1.5-7.7); Eosinophil % 8.2 %; Hematocrit 22 % (35-47); Hemoglobin 7.7 g/dL (12.0-16.0); Lymphocyte % 26.3 %; Mean Corpuscular HGB Conc 35 g/dL (31-36); Mean Corpuscular Hemoglobin 32 pg (27-31); Mean Corpuscular Volume 91 fL (80-97); Mean Platelet Volume 7.8 fL (7.4-10.4); Platelet Count 92 10^3/uL (150-450); Red Blood Count 2.43 10^6 /uL (3.70-4.87); Red Cell Distribution Width 19 % (10-15); White Blood Count 2.3 10^3/uL (3.5-10.8)
[2020-10-23 06:42] LABS: Calcium 7.8 mg/dL (8.6-10.3); EGFR African American 72.8 (>60); EGFR Non-African American 60.2 (>60); Potassium 3.3 mmol/L (3.5-5.0)
[2020-10-23 09:15] LABS: Magnesium 1.6 mg/dL (1.9-2.7)
[2020-10-23] MEDS ORDERED: Magnesium Sulfate IV 3 GM in NS 0.9% 100 ml BAG 100 ML IVPB ONE (09:23)
[2020-10-23] MEDS ORDERED: Potassium Chlor 20 meq TAB.ER PO ONE (10:00)
[2020-10-23] MEDS: Pantoprazole VIAL 40 MG VIAL IV SCH (11:30)
[2020-10-23] MEDS: Chlorhexidine MOUTHWASH 0.12% 15 ML UDC TOPICAL SCH (11:31)
[2020-10-23 11:49] VITALS: BP 112/65
== END 2020-10-23 16:15 | disposition home or self-care (01) | DRG 378 ==
LOC: ED 16:23 → MED 23:08
PROVIDERS: ADMIT Internal Medicine; ATTEND Student in an Organized Health Care Education/Training Program

== ENCOUNTER 2020-11-03 19:00 | Inpatient (IN) ==
[2020-11-03] MEDS ORDERED: NS 0.9% 1000 ml BAG 1,000 ML IV ONE (19:06)
[2020-11-03] MEDS ORDERED: Iodixanol (CONTRAST) 320 MG/ML 100 ML SDV IV ONE (19:22)
[2020-11-03 19:42] LABS: ABS Lymphocytes 0.7 10^3/ul (1.0-4.8); ABS Monocytes 0.6 10^3/ul (0-0.8); Hematocrit 24 % (35-47); Hemoglobin 8.1 g/dL (12.0-16.0); Lymphocyte % 16.9 %; Mean Corpuscular HGB Conc 34 g/dL (31-36); Mean Corpuscular Hemoglobin 32 pg (27-31); Mean Corpuscular Volume 95 fL (80-97); Mean Platelet Volume 7.3 fL (7.4-10.4); Platelet Count 205 10^3/uL (150-450); Red Blood Count 2.53 10^6 /uL (3.70-4.87); Red Cell Distribution Width 21 % (10-15); White Blood Count 4.3 10^3/uL (3.5-10.8)
[2020-11-03 19:59] LABS: Albumin 2.2 g/dL (3.2-5.2); Albumin/Globulin Ratio 0.9 (1-3); Calcium 7.8 mg/dL (8.6-10.3); EGFR African American 50.7 (>60); EGFR Non-African American 41.9 (>60); Globulin 2.4 g/dL (2-4); HDL Cholesterol 37.7 mg/dL; Potassium 4.2 mmol/L (3.5-5.0); Total Bilirubin 2.3 mg/dL (0.2-1.0); Total Protein 4.6 g/dL (6.4-8.9)
[2020-11-03 20:00] LABS: Troponin I 0.02 ng/mL (<0.03)
[2020-11-03 20:19] LABS: INR 1.8 (0.82-1.09)
[2020-11-03 20:23] LABS: Activated Partial Thrombo Time 114.3 seconds (26.0-38.0)
[2020-11-03 22:04] LABS: Urine Appearance Clear; Urine Bilirubin Negative (Negative); Urine Blood 1+ (Negative); Urine Color Yellow; Urine Glucose Negative (Negative); Urine Ketones Negative (Negative); Urine Nitrite Negative (Negative); Urine Protein Negative (Negative); Urine Urobilinogen Positive (Negative)
[2020-11-03 22:14] LABS: Urine Bacteria Absent (Absent); Urine Red Blood Cell Trace(0-2/hpf) (Absent); Urine Squamous Epithelial Cell Present (Absent); Urine White Blood Cell Trace(0-5/hpf) (Absent)
[2020-11-03 22:48] LABS: C Reactive Protein 1.89 mg/L (<8.01)
[2020-11-03 23:05] LABS: Activated Partial Thrombo Time 28.1 seconds (26.0-38.0); INR 1.79 (0.82-1.09)
[2020-11-04] MEDS: Lactulose 30 ml UDC PO SCH ×5 (00:56→19:48)
[2020-11-04 05:24] LABS: ABS Lymphocytes 0.5 10^3/ul (1.0-4.8); ABS Monocytes 0.3 10^3/ul (0-0.8); ABS Neutrophils 1.9 10^3/ul (1.5-7.7); Eosinophil % 0.1 %; Hematocrit 22 % (35-47); Hemoglobin 7.5 g/dL (12.0-16.0); Lymphocyte % 17.1 %; Mean Corpuscular HGB Conc 34 g/dL (31-36); Mean Corpuscular Hemoglobin 32 pg (27-31); Mean Corpuscular Volume 95 fL (80-97); Mean Platelet Volume 7.3 fL (7.4-10.4); Platelet Count 147 10^3/uL (150-450); Red Blood Count 2.32 10^6 /uL (3.70-4.87); Red Cell Distribution Width 22 % (10-15); White Blood Count 2.7 10^3/uL (3.5-10.8)
[2020-11-04 05:49] LABS: BUN/Creatinine Ratio 27.8 (8-20); Calcium 7.4 mg/dL (8.6-10.3); EGFR African American 56.3 (>60); EGFR Non-African American 46.5 (>60); Potassium 4.2 mmol/L (3.5-5.0)
[2020-11-04] MEDS: Cholecalciferol (VIT D3) 1,000 unit TAB PO SCH (10:04)
[2020-11-04 14:09] LABS: Hepatitis B Surface Antigen Nonreactive (Nonreactive)
[2020-11-04 14:14] LABS: Hepatitis A Ab IgM Negative (Negative)
[2020-11-04 14:15] LABS: Hepatitis B Core IgM Nonreactive (Nonreactive)
[2020-11-04 14:26] LABS: Hepatitis C Antibody Negative (Negative)
[2020-11-04 18:53] LABS: Hematocrit 28 % (35-47); Hemoglobin 9.4 g/dL (12.0-16.0); Mean Corpuscular HGB Conc 34 g/dL (31-36); Mean Corpuscular Hemoglobin 33 pg (27-31); Mean Corpuscular Volume 96 fL (80-97); Mean Platelet Volume 7.5 fL (7.4-10.4); Platelet Count 251 10^3/uL (150-450); Red Blood Count 2.89 10^6 /uL (3.70-4.87); Red Cell Distribution Width 21 % (10-15); White Blood Count 4.6 10^3/uL (3.5-10.8)
[2020-11-05 04:45] LABS: Hematocrit 24 % (35-47); Hemoglobin 7.9 g/dL (12.0-16.0); Mean Corpuscular HGB Conc 33 g/dL (31-36); Mean Corpuscular Hemoglobin 32 pg (27-31); Mean Corpuscular Volume 95 fL (80-97); Mean Platelet Volume 7.1 fL (7.4-10.4); Platelet Count 164 10^3/uL (150-450); Red Cell Distribution Width 21 % (10-15); White Blood Count 4.1 10^3/uL (3.5-10.8)
[2020-11-05 05:00] LABS: Albumin 2.1 g/dL (3.2-5.2); Albumin/Globulin Ratio 0.9 (1-3); BUN/Creatinine Ratio 25.2 (8-20); Calcium 8.1 mg/dL (8.6-10.3); EGFR African American 56.3 (>60); EGFR Non-African American 46.5 (>60); Globulin 2.3 g/dL (2-4); Potassium 3.9 mmol/L (3.5-5.0); Total Bilirubin 2.5 mg/dL (0.2-1.0); Total Protein 4.4 g/dL (6.4-8.9)
[2020-11-05 06:22] LABS: ABS Lymphocytes 0.8 10^3/ul (1.0-4.8); ABS Monocytes 0.7 10^3/ul (0-0.8); ABS Neutrophils 2.5 10^3/ul (1.5-7.7); Eosinophil % 0.8 %; Lymphocyte % 20.3 %; Nucleated Red Blood Cells % 0.1
[2020-11-05] MEDS: Cholecalciferol (VIT D3) 1,000 unit TAB PO SCH (09:49)
[2020-11-05] MEDS: Lactulose 30 ml UDC PO SCH ×4 (09:51→23:09)
[2020-11-05 12:43] LABS: Body Fluid Source Peritonial Fluid
[2020-11-05 15:53] LABS: Body Fluid Mono 47 %; Body Fluid Other Cells 53
[2020-11-06 06:18] LABS: Hematocrit 19 % (35-47); Hemoglobin 6.3 g/dL (12.0-16.0); Mean Corpuscular HGB Conc 33 g/dL (31-36); Mean Corpuscular Hemoglobin 32 pg (27-31); Mean Corpuscular Volume 96 fL (80-97); Mean Platelet Volume 7.4 fL (7.4-10.4); Platelet Count 111 10^3/uL (150-450); Red Blood Count 1.98 10^6 /uL (3.70-4.87); Red Cell Distribution Width 21 % (10-15); White Blood Count 3.9 10^3/uL (3.5-10.8)
[2020-11-06 06:27] LABS: BUN/Creatinine Ratio 23.8 (8-20); Calcium 7.9 mg/dL (8.6-10.3); EGFR African American 62.5 (>60); EGFR Non-African American 51.7 (>60); Potassium 3.9 mmol/L (3.5-5.0)
[2020-11-06] MEDS: Lactulose 30 ml UDC PO SCH ×4 (10:24→22:56)
[2020-11-06] MEDS: Cholecalciferol (VIT D3) 1,000 unit TAB PO SCH (10:25)
[2020-11-06 11:37] LABS: Lactate Dehydrogenase, BF 35 U/L
[2020-11-06 15:00] LABS: Fluid Type, Glucose PERITONEAL; Fluid Type, Protein, Total PERITONEAL; Glucose, BF 121 mg/dL
[2020-11-06 16:46] LABS: Indirect Bilirubin 1.7 mg/dL (0.3-1.0); Total Bilirubin 2.3 mg/dL (0.2-1.0)
[2020-11-06 19:26] LABS: % Iron Saturation 97 % (15-55); Iron 286 ug/dL (50-212); LDH 251 U/L (140-271); Total Iron Binding Capacity 294 mcg/dL (250-450); Transferrin 210 mg/dL (203-362); Unsaturated Iron Binding 8 ug/dL
[2020-11-06 23:20] LABS: Hematocrit 29 % (35-47); Hemoglobin 10.2 g/dL (12.0-16.0); Mean Corpuscular HGB Conc 36 g/dL (31-36); Mean Corpuscular Hemoglobin 32 pg (27-31); Mean Corpuscular Volume 91 fL (80-97); Mean Platelet Volume 7.4 fL (7.4-10.4); Platelet Count 115 10^3/uL (150-450); Red Blood Count 3.15 10^6 /uL (3.70-4.87); Red Cell Distribution Width 20 % (10-15); White Blood Count 6.5 10^3/uL (3.5-10.8)
[2020-11-07 07:02] LABS: Hematocrit 29 % (35-47); Hemoglobin 9.8 g/dL (12.0-16.0); Mean Corpuscular HGB Conc 34 g/dL (31-36); Mean Corpuscular Hemoglobin 31 pg (27-31); Mean Corpuscular Volume 92 fL (80-97); Mean Platelet Volume 7.7 fL (7.4-10.4); Platelet Count 101 10^3/uL (150-450); Red Blood Count 3.12 10^6 /uL (3.70-4.87); Red Cell Distribution Width 20 % (10-15); White Blood Count 5.3 10^3/uL (3.5-10.8)
[2020-11-07 07:16] LABS: Albumin 2.1 g/dL (3.2-5.2); Albumin/Globulin Ratio 0.8 (1-3); BUN/Creatinine Ratio 23.3 (8-20); Calcium 7.8 mg/dL (8.6-10.3); EGFR African American 74.7 (>60); EGFR Non-African American 61.7 (>60); Globulin 2.5 g/dL (2-4); Indirect Bilirubin 2.5 mg/dL (0.3-1.0); Potassium 3.8 mmol/L (3.5-5.0); Total Bilirubin 3.1 mg/dL (0.2-1.0); Total Protein 4.6 g/dL (6.4-8.9)
[2020-11-07] MEDS: Cholecalciferol (VIT D3) 1,000 unit TAB PO SCH (08:43)
[2020-11-07] MEDS: Pantoprazole VIAL 40 MG VIAL IV SCH ×2 (08:44→20:48)
[2020-11-07] MEDS: Lactulose 30 ml UDC PO SCH ×4 (09:01→20:48)
[2020-11-07 10:38] LABS: Urine Appearance Cloudy; Urine Bilirubin Negative (Negative); Urine Blood 3+ (Negative); Urine Color Amber; Urine Glucose Negative (Negative); Urine Ketones Negative (Negative); Urine Nitrite Negative (Negative); Urine Protein 1+(30 mg/dL) (Negative); Urine Specific Gravity 1.026 (1.010-1.030); Urine Urobilinogen Negative (Negative)
[2020-11-07 11:01] LABS: Urine Bacteria Absent (Absent); Urine Red Blood Cell 3+(>10/hpf) (Absent); Urine Squamous Epithelial Cell Present (Absent); Urine White Blood Cell 2+(11-20/hpf) (Absent)
[2020-11-07] MEDS ORDERED: Artificial Tear OPHTH.OINT 3.5 GM BOTH EYES PRN (13:52)
[2020-11-07] MEDS: Dextran 70/Hypromellose Tears Eye Drops 15 ml BTL (for Artificials Tears) BOTH EYES PRN (20:48)
[2020-11-08] MEDS: Dextran 70/Hypromellose Tears Eye Drops 15 ml BTL (for Artificials Tears) BOTH EYES PRN ×2 (06:26→11:00)
[2020-11-08 06:39] LABS: Hematocrit 27 % (35-47); Hemoglobin 9.2 g/dL (12.0-16.0); Mean Corpuscular HGB Conc 34 g/dL (31-36); Mean Corpuscular Hemoglobin 31 pg (27-31); Mean Corpuscular Volume 93 fL (80-97); Platelet Count 88 10^3/uL (150-450); Red Blood Count 2.96 10^6 /uL (3.70-4.87); Red Cell Distribution Width 20 % (10-15); White Blood Count 4.3 10^3/uL (3.5-10.8)
[2020-11-08 07:10] LABS: Albumin/Globulin Ratio 0.8 (1-3); BUN/Creatinine Ratio 19.8 (8-20); EGFR African American 65.4 (>60); Globulin 2.4 g/dL (2-4); Potassium 3.7 mmol/L (3.5-5.0); Total Bilirubin 2.5 mg/dL (0.2-1.0); Total Protein 4.4 g/dL (6.4-8.9)
[2020-11-08 07:24] LABS: ABS Eosinophils 0.1 10^3/ul (0-0.6); ABS Lymphocytes 0.7 10^3/ul (1.0-4.8); ABS Monocytes 0.6 10^3/ul (0-0.8); ABS Neutrophils 2.8 10^3/ul (1.5-7.7); Eosinophil % 1.8 %; Lymphocyte % 17.4 %
[2020-11-08] MEDS: Cholecalciferol (VIT D3) 1,000 unit TAB PO SCH (09:50)
[2020-11-08] MEDS: Lactulose 30 ml UDC PO SCH ×2 (09:52→13:38)
[2020-11-08] MEDS: Pantoprazole VIAL 40 MG VIAL IV SCH (09:53)
[2020-11-08 14:59] LABS: Albumin, BF 0.3 g/dL; Fluid Type, Albumin PERITONEAL
[2020-11-08 16:26] VITALS: BP 112/70
== END 2020-11-08 16:51 | disposition home health service (06) | DRG 432 ==
LOC: ED 19:00 → MEDTELE 23:34
PROVIDERS: ADMIT Internal Medicine; ATTEND Internal Medicine

== ENCOUNTER 2020-12-19 10:03 | Inpatient (IN) ==
[~2020-12-19 10:03] MED LIST changes: -Buffered Lidocaine 1% SYRIN* 1 ML/SYRINGE INTRADERM ONE; +D5W IVPB SCH; +Dexamethasone IV 8 MG in Premix IV 0 ML IV SCH; -Dexamethasone IV* 4 MG/ML 1 ML (4 MG) ONE; -Gelfoam 12-7 ADSORBABL SPONGE* 1 EA SPONGE ONE; -Lactated Ringers 1000 ML Bag* 1,000 ML IV SCH; -Levalbuterol 1.25MG/0.5ML NEB ONE; -Lidocaine 2% w/ EPI 1:200,000* 20 ML SDV VIAL ONE; -Midazolam* 1 MG/ML 2 ML VIAL (2 MG) ONE; -Naloxone* 0.4 MG/ML 1 ML VIAL IV PRN; -Ondansetron INJ* 2 MG/ML VIAL IV PRN; -Ondansetron INJ* 2 MG/ML VIAL ONE; -Oxymetazoline 0.05% NASAL SPR* 15 ML BTL ONE; -Propofol* 10 MG/ML 20 ML BTL ONE; -Triamcinolone Acetonide* 40 MG/ML 1 ML VIAL ONE; +[UNRECOGNIZED DRUG - OTHER] IVPB SCH; -fentaNYL* 50 MCG/ML 2 ML VIAL (100 MCG VIAL) IV PRN; -fentaNYL* 50 MCG/ML 2 ML VIAL (100 MCG VIAL) ONE; -oxyCODONE/Acetamin 5/325 MG* TAB PO PRN
[2020-12-19] MEDS ORDERED: Albuterol 2.5mg/3 ml (0.083%) NEB.SOLN INH PRN (12:55)
[2020-12-19] MEDS ORDERED: Zosyn per Pharmacy NOTE FOLLOW UP SCH (13:00)
[2020-12-19] MEDS ORDERED: Albuterol 2.5mg/3 ml (0.083%) NEB.SOLN INH SCH (13:00)
[2020-12-19 13:52] LABS: ABS Basophils 0.1 10^3/ul (0-0.2); ABS Eosinophils 0.1 10^3/ul (0-0.6); ABS Lymphocytes 0.8 10^3/ul (1.0-4.8); ABS Monocytes 1.5 10^3/ul (0-0.8); ABS Neutrophils 5.7 10^3/ul (1.5-7.7); Eosinophil % 1.2 %; Hematocrit 27 % (35-47); Hemoglobin 9.4 g/dL (12.0-16.0); Lymphocyte % 10.1 %; Mean Corpuscular HGB Conc 34 g/dL (31-36); Mean Corpuscular Hemoglobin 33 pg (27-31); Mean Corpuscular Volume 97 fL (80-97); Mean Platelet Volume 7.6 fL (7.4-10.4); Nucleated Red Blood Cells % 0.1; Platelet Count 260 10^3/uL (150-450); Red Blood Count 2.82 10^6 /uL (3.70-4.87); Red Cell Distribution Width 24 % (10-15); White Blood Count 8.3 10^3/uL (3.5-10.8)
[2020-12-19 13:55] LABS: Albumin 2.6 g/dL (3.2-5.2); Albumin/Globulin Ratio 0.9 (1-3); BUN/Creatinine Ratio 20.4 (8-20); Calcium 8.6 mg/dL (8.6-10.3); EGFR African American 63.9 (>60); EGFR Non-African American 52.8 (>60); Globulin 2.8 g/dL (2-4); Total Bilirubin 3.4 mg/dL (0.2-1.0); Total Protein 5.4 g/dL (6.4-8.9)
[2020-12-19] MEDS ORDERED: Iodixanol (CONTRAST) 320 MG/ML 100 ML SDV IV ONE (14:03)
[2020-12-19] MEDS ORDERED: Piperacillin/Tazobac ADVAN 3.375 GM in NS 0.9% 100 ml BAG 100 ML IV ONE (15:30)
[2020-12-19] MEDS: Enoxaparin 40 MG/0.4 ML SYR SUBCUT SCH (16:04)
[2020-12-19] MEDS: methylPREDNISolone 125 mg 2 ML VIAL IV SCH (16:29)
[2020-12-19] MEDS: NS 0.9% 1000 ml BAG 1,000 ML IV SCH (16:32)
[2020-12-19] MEDS: ZOSYN 3.375 GM Q8H per EXTENDED INFUSION IV SCH (22:16)
[2020-12-20] MEDS: Lactulose 30 ml UDC PO SCH ×4 (00:22→21:03)
[2020-12-20] MEDS ORDERED: NS 0.9% 500 ml BAG 500 ML IV ONE (02:30)
[2020-12-20] MEDS: methylPREDNISolone 125 mg 2 ML VIAL IV SCH ×2 (03:26→16:12)
[2020-12-20] MEDS: ZOSYN 3.375 GM Q8H per EXTENDED INFUSION IV SCH ×3 (05:06→22:05)
[2020-12-20 05:51] LABS: ABS Lymphocytes 0.5 10^3/ul (1.0-4.8); ABS Monocytes 0.1 10^3/ul (0-0.8); Eosinophil % 0.1 %; Hematocrit 23 % (35-47); Hemoglobin 7.8 g/dL (12.0-16.0); Lymphocyte % 14.7 %; Mean Corpuscular HGB Conc 35 g/dL (31-36); Mean Corpuscular Hemoglobin 34 pg (27-31); Mean Corpuscular Volume 98 fL (80-97); Mean Platelet Volume 7.8 fL (7.4-10.4); Nucleated Red Blood Cells % 0.1; Platelet Count 182 10^3/uL (150-450); Red Blood Count 2.29 10^6 /uL (3.70-4.87); Red Cell Distribution Width 27 % (10-15); White Blood Count 3.7 10^3/uL (3.5-10.8)
[2020-12-20 05:58] LABS: Albumin 2.1 g/dL (3.2-5.2); Albumin/Globulin Ratio 0.9 (1-3); BUN/Creatinine Ratio 20.6 (8-20); EGFR African American 61.2 (>60); EGFR Non-African American 50.6 (>60); Globulin 2.4 g/dL (2-4); Potassium 4.3 mmol/L (3.5-5.0); Total Bilirubin 2.5 mg/dL (0.2-1.0); Total Protein 4.5 g/dL (6.4-8.9)
[2020-12-20 06:14] LABS: Polychromasia 1+
[2020-12-20] MEDS: Enoxaparin 40 MG/0.4 ML SYR SUBCUT SCH (14:09)
[2020-12-20] MEDS: NS 0.9% 1000 ml BAG 1,000 ML IV SCH (14:10)
[2020-12-21] MEDS: methylPREDNISolone 125 mg 2 ML VIAL IV SCH (03:52)
[2020-12-21] MEDS: ZOSYN 3.375 GM Q8H per EXTENDED INFUSION IV SCH ×3 (05:57→22:16)
[2020-12-21] MEDS: Lactulose 30 ml UDC PO SCH ×3 (09:28→22:17)
[2020-12-21 12:55] LABS: INR 1.58 (0.82-1.09)
[2020-12-21 12:56] LABS: BUN/Creatinine Ratio 22.7 (8-20); Calcium 9.4 mg/dL (8.6-10.3); EGFR African American 59.2 (>60); Potassium 3.8 mmol/L (3.5-5.0)
[2020-12-21 13:04] LABS: ABS Lymphocytes 0.6 10^3/ul (1.0-4.8); ABS Monocytes 0.6 10^3/ul (0-0.8); ABS Neutrophils 11.4 10^3/ul (1.5-7.7); Hematocrit 31 % (35-47); Hemoglobin 10.3 g/dL (12.0-16.0); Mean Corpuscular HGB Conc 34 g/dL (31-36); Mean Corpuscular Hemoglobin 34 pg (27-31); Mean Corpuscular Volume 101 fL (80-97); Mean Platelet Volume 8.1 fL (7.4-10.4); Nucleated Red Blood Cells % 0.1; Platelet Count 254 10^3/uL (150-450); Red Blood Count 3.03 10^6 /uL (3.70-4.87); Red Cell Distribution Width 24 % (10-15); White Blood Count 12.7 10^3/uL (3.5-10.8)
[2020-12-21] MEDS: Enoxaparin 40 MG/0.4 ML SYR SUBCUT SCH (13:08)
[2020-12-21] MEDS: NS 0.9% 1000 ml BAG 1,000 ML IV SCH (20:04)
[2020-12-22 05:20] LABS: ABS Lymphocytes 0.5 10^3/ul (1.0-4.8); ABS Monocytes 0.5 10^3/ul (0-0.8); ABS Neutrophils 6.4 10^3/ul (1.5-7.7); Hematocrit 25 % (35-47); Hemoglobin 8.6 g/dL (12.0-16.0); Lymphocyte % 6.7 %; Mean Corpuscular HGB Conc 35 g/dL (31-36); Mean Corpuscular Hemoglobin 35 pg (27-31); Mean Corpuscular Volume 100 fL (80-97); Platelet Count 173 10^3/uL (150-450); Red Blood Count 2.47 10^6 /uL (3.70-4.87); Red Cell Distribution Width 25 % (10-15); White Blood Count 7.4 10^3/uL (3.5-10.8)
[2020-12-22] MEDS: ZOSYN 3.375 GM Q8H per EXTENDED INFUSION IV SCH (05:41)
[2020-12-22] MEDS: Lactulose 30 ml UDC PO SCH (08:14)
[2020-12-22] MEDS ORDERED: methylPREDNISolone 125 mg 2 ML VIAL IV SCH (09:00)
[2020-12-22] MEDS: NS 0.9% 1000 ml BAG 1,000 ML IV SCH (09:38)
[2020-12-22 11:44] VITALS: BP 110/62
== END 2020-12-22 14:15 | disposition home or self-care (01) | DRG 194 ==
LOC: CHOA 10:03 → MED 13:04 → MEDTELE 12-20 01:20
PROVIDERS: ADMIT Internal Medicine Hematology & Oncology; ATTEND Internal Medicine Hematology & Oncology

== ENCOUNTER 2020-12-26 11:50 | Inpatient (IN) ==
[2020-12-26 11:04] LABS: ABS Basophils 0.1 10^3/ul (0-0.2); ABS Eosinophils 0.2 10^3/ul (0-0.6); ABS Lymphocytes 0.6 10^3/ul (1.0-4.8); ABS Neutrophils 7.7 10^3/ul (1.5-7.7); Eosinophil % 1.6 %; Hematocrit 33 % (35-47); Hemoglobin 11.3 g/dL (12.0-16.0); Lymphocyte % 6.5 %; Mean Corpuscular HGB Conc 34 g/dL (31-36); Mean Corpuscular Hemoglobin 35 pg (27-31); Mean Corpuscular Volume 101 fL (80-97); Mean Platelet Volume 8.2 fL (7.4-10.4); Nucleated Red Blood Cells % 0.1; Platelet Count 145 10^3/uL (150-450); Red Blood Count 3.24 10^6 /uL (3.70-4.87); Red Cell Distribution Width 28 % (10-15); White Blood Count 9.5 10^3/uL (3.5-10.8)
[2020-12-26 11:19] LABS: Albumin 2.6 g/dL (3.2-5.2); Albumin/Globulin Ratio 0.9 (1-3); BUN/Creatinine Ratio 19.6 (8-20); Calcium 8.8 mg/dL (8.6-10.3); EGFR African American 72.8 (>60); EGFR Non-African American 60.2 (>60); Globulin 2.9 g/dL (2-4); Potassium 4.3 mmol/L (3.5-5.0); Total Protein 5.5 g/dL (6.4-8.9)
[~2020-12-26 11:50] MED LIST changes: +FULVESTRANT ONE
[2020-12-26 12:22] LABS: Magnesium 1.6 mg/dL (1.9-2.7)
[2020-12-26] MEDS ORDERED: Furosemide 20 mg/2 ml IV VIAL IV ONE (12:28)
[2020-12-26 13:20] LABS: Urine Appearance Clear; Urine Color Yellow
[2020-12-26 13:27] LABS: C Reactive Protein 13.65 mg/L (<8.01)
[2020-12-26 13:30] LABS: Urine Ketones Negative (Negative); Urine Protein Negative (Negative); Urine Urobilinogen Negative (Negative)
[2020-12-26 13:31] LABS: Urine Bilirubin Negative (Negative); Urine Blood Negative (Negative); Urine Glucose Negative (Negative); Urine Nitrite Negative (Negative)
[2020-12-26] MEDS: Sulfamethox/Trimethoprim DS TAB 800/160 mg PO SCH ×2 (15:15→20:55)
[2020-12-26] MEDS ORDERED: NS 0.9% 1000 ml BAG 1,000 ML IV ONE (15:25)
[2020-12-26] MEDS: Lactulose 30 ml UDC PO SCH ×2 (15:49→20:55)
[2020-12-26] MEDS ORDERED: Iohexol 300 (CONTRAST) 10 ML SDV IV ONE (17:07)
[2020-12-27 06:21] LABS: ABS Eosinophils 0.1 10^3/ul (0-0.6); ABS Lymphocytes 0.5 10^3/ul (1.0-4.8); ABS Monocytes 0.8 10^3/ul (0-0.8); ABS Neutrophils 4.7 10^3/ul (1.5-7.7); Eosinophil % 2.4 %; Hematocrit 27 % (35-47); Hemoglobin 9.1 g/dL (12.0-16.0); Lymphocyte % 7.8 %; Mean Corpuscular HGB Conc 34 g/dL (31-36); Mean Corpuscular Hemoglobin 35 pg (27-31); Mean Corpuscular Volume 102 fL (80-97); Mean Platelet Volume 8.7 fL (7.4-10.4); Nucleated Red Blood Cells % 0.1; Platelet Count 102 10^3/uL (150-450); Red Blood Count 2.63 10^6 /uL (3.70-4.87); Red Cell Distribution Width 29 % (10-15); White Blood Count 6.2 10^3/uL (3.5-10.8)
[2020-12-27] MEDS: Lactulose 30 ml UDC PO SCH ×3 (09:22→22:08)
[2020-12-27] MEDS: Sulfamethox/Trimethoprim DS TAB 800/160 mg PO SCH ×3 (09:23→22:22)
[2020-12-27] MEDS: Cholecalciferol (VIT D3) 1,000 unit TAB PO SCH (09:23)
[2020-12-27 13:17] LABS: Breast Carcinoma Ag(CA27.29) 208 U/mL (<=38.0)
[2020-12-27] MEDS ORDERED: Lidocaine 2% PF 5 ML VIAL ONE (14:09)
[2020-12-27] MEDS ORDERED: Succinylcholine 200 mg VIAL 20 mg/ml 10 ml VIAL (200 mg) ONE (14:09)
[2020-12-27] MEDS ORDERED: fentaNYL 100 mcg/2 ml 50 MCG/ML VIAL ONE (14:09)
[2020-12-27] MEDS ORDERED: Midazolam 2 mg/2 ml VIAL 1 mg/ml 2 ml VIAL (2 mg) ONE (14:09)
[2020-12-27] MEDS ORDERED: Propofol 10 MG/ML 20 ML BTL ONE (14:09)
[2020-12-27] MEDS ORDERED: fentaNYL 100 mcg/2 ml 50 MCG/ML VIAL IV PRN (14:41)
[2020-12-27] MEDS ORDERED: DiMENhydriNATE IV 50 mg/ml 1 ml VIAL IV PUSH PRN (14:41)
[2020-12-27] MEDS ORDERED: Naloxone 0.4 mg VIAL 0.4 mg/ml 1 ml VIAL IV PRN (14:41)
[2020-12-27 14:52] LABS: CA 15-3 108 U/mL (<30)
[2020-12-27] MEDS ORDERED: Levalbuterol 1.25MG/0.5ML NEB.SOL INH ONE (15:12)
[2020-12-27] MEDS ORDERED: Levalbuterol 1.25MG/0.5ML NEB.SOL ONE (15:14)
[2020-12-27] MEDS ORDERED: Phenylephrine 40 mcg/mL 10mL (400mcg) SYRINGE ONE (15:52)
[2020-12-27] MEDS ORDERED: Dexamethasone IV 4 MG/ML VIAL 1 ml VIAL ONE (16:08)
[2020-12-27] MEDS ORDERED: Ondansetron 4 mg VIAL 2 MG/ML 2 ml VIAL ONE (16:08)
[2020-12-27] MEDS ORDERED: Levalbuterol HFA INHALER MDI ONE (16:42)
[2020-12-27] MEDS ORDERED: methylPREDNISolone 125 mg 2 ML VIAL ONE (17:19)
[2020-12-27] MEDS ORDERED: Albuterol/Ipratropium NEB.SOL (2.5/0.5 MG) 3 ML NEB.SOLN INH ONE (17:22)
[2020-12-27] MEDS ORDERED: Levalbuterol 0.63MG/3ML NEB UNIT OF USE INH ONE (17:25)
[2020-12-27] MEDS: methylPREDNISolone SOD 40 mg/ml 1 ml VIAL IV SCH (17:30)
[2020-12-27] MEDS ORDERED: Furosemide 20 mg/2 ml IV VIAL ONE (17:57)
[2020-12-27] MEDS ORDERED: Albuterol/Ipratropium NEB.SOL (2.5/0.5 MG) 3 ML NEB.SOLN INH PRN (18:16)
[2020-12-27 18:38] LABS: Albumin 2.7 g/dL (3.2-5.2); Albumin/Globulin Ratio 0.9 (1-3); BUN/Creatinine Ratio 18.6 (8-20); Calcium 8.6 mg/dL (8.6-10.3); EGFR African American 64.6 (>60); EGFR Non-African American 53.4 (>60); Globulin 2.9 g/dL (2-4); Magnesium 1.8 mg/dL (1.9-2.7); Total Bilirubin 3.3 mg/dL (0.2-1.0); Total Protein 5.6 g/dL (6.4-8.9)
[2020-12-27] MEDS ORDERED: Naloxone 0.4 mg VIAL 0.4 mg/ml 1 ml VIAL IV PUSH PRN (21:23)
[2020-12-27] MEDS ORDERED: NS 0.9% 500 ml BAG 500 ML IV ONE (23:58)
[2020-12-28] MEDS ORDERED: NS 0.9% 500 ml BAG 500 ML IV ONE (00:59)
[2020-12-28] MEDS ORDERED: Naloxone 0.4 mg VIAL 0.4 mg/ml 1 ml VIAL IV PUSH ONE (01:39)
[2020-12-28 06:26] LABS: ABS Lymphocytes 0.4 10^3/ul (1.0-4.8); ABS Monocytes 0.4 10^3/ul (0-0.8); ABS Neutrophils 4.5 10^3/ul (1.5-7.7); Hematocrit 25 % (35-47); Hemoglobin 8.4 g/dL (12.0-16.0); Lymphocyte % 7.2 %; Mean Corpuscular HGB Conc 33 g/dL (31-36); Mean Corpuscular Hemoglobin 35 pg (27-31); Mean Corpuscular Volume 103 fL (80-97); Mean Platelet Volume 7.8 fL (7.4-10.4); Platelet Count 84 10^3/uL (150-450); Red Blood Count 2.44 10^6 /uL (3.70-4.87); Red Cell Distribution Width 29 % (10-15); White Blood Count 5.3 10^3/uL (3.5-10.8)
[2020-12-28 06:49] LABS: Polychromasia 2+
[2020-12-28] MEDS: methylPREDNISolone SOD 40 mg/ml 1 ml VIAL IV SCH ×2 (07:20→18:16)
[2020-12-28] MEDS: Lactulose 30 ml UDC PO SCH ×4 (08:26→21:45)
[2020-12-28] MEDS: Sulfamethox/Trimethoprim DS TAB 800/160 mg PO SCH ×3 (08:34→21:45)
[2020-12-28] MEDS: Cholecalciferol (VIT D3) 1,000 unit TAB PO SCH (08:34)
[2020-12-28] MEDS ORDERED: Furosemide 20 mg/2 ml IV VIAL IV SLOW PU ONE (13:27)
[2020-12-28] MEDS: Albuterol/Ipratropium NEB.SOL (2.5/0.5 MG) 3 ML NEB.SOLN INH SCH (20:26)
[2020-12-29] MEDS: Albuterol/Ipratropium NEB.SOL (2.5/0.5 MG) 3 ML NEB.SOLN INH SCH ×7 (01:04→23:41)
[2020-12-29] MEDS: methylPREDNISolone SOD 40 mg/ml 1 ml VIAL IV SCH ×3 (05:40→21:12)
[2020-12-29 06:44] LABS: Hematocrit 26 % (35-47); Hemoglobin 8.5 g/dL (12.0-16.0); Mean Corpuscular HGB Conc 33 g/dL (31-36); Mean Corpuscular Hemoglobin 35 pg (27-31); Mean Corpuscular Volume 106 fL (80-97); Mean Platelet Volume 8.4 fL (7.4-10.4); Platelet Count 99 10^3/uL (150-450); Red Blood Count 2.42 10^6 /uL (3.70-4.87); Red Cell Distribution Width 30 % (10-15); White Blood Count 10.7 10^3/uL (3.5-10.8)
[2020-12-29 06:47] LABS: Calcium 8.5 mg/dL (8.6-10.3); EGFR African American 36.3 (>60); Magnesium 2.1 mg/dL (1.9-2.7); Potassium 4.2 mmol/L (3.5-5.0)
[2020-12-29] MEDS: Sulfamethox/Trimethoprim DS TAB 800/160 mg PO SCH ×3 (08:57→21:11)
[2020-12-29] MEDS: Lactulose 30 ml UDC PO SCH ×3 (08:58→21:10)
[2020-12-29] MEDS: Cholecalciferol (VIT D3) 1,000 unit TAB PO SCH (08:58)
[2020-12-29 09:15] LABS: ABS Lymphocytes 0.5 10^3/ul (1.0-4.8); ABS Monocytes 0.8 10^3/ul (0-0.8); ABS Neutrophils 9.4 10^3/ul (1.5-7.7); Lymphocyte % 4.3 %
[2020-12-29] MEDS ORDERED: Furosemide 20 mg/2 ml IV VIAL IV SLOW PU ONE (10:51)
[2020-12-30] MEDS: Albuterol/Ipratropium NEB.SOL (2.5/0.5 MG) 3 ML NEB.SOLN INH SCH ×5 (02:53→17:53)
[2020-12-30] MEDS: methylPREDNISolone SOD 40 mg/ml 1 ml VIAL IV SCH ×3 (05:16→20:36)
[2020-12-30 05:58] LABS: BUN/Creatinine Ratio 21.1 (8-20); Calcium 9.7 mg/dL (8.6-10.3); EGFR African American 33.6 (>60); EGFR Non-African American 27.7 (>60); Potassium 4.5 mmol/L (3.5-5.0)
[2020-12-30 07:28] LABS: Polychromasia 1+; Tear Drop Cells 1+
[2020-12-30 07:33] LABS: ABS Lymphocytes 0.4 10^3/ul (1.0-4.8); ABS Monocytes 0.6 10^3/ul (0-0.8); ABS Neutrophils 9.6 10^3/ul (1.5-7.7); Hematocrit 26 % (35-47); Hemoglobin 8.8 g/dL (12.0-16.0); Lymphocyte % 4.1 %; Mean Corpuscular HGB Conc 34 g/dL (31-36); Mean Corpuscular Hemoglobin 35 pg (27-31); Mean Corpuscular Volume 104 fL (80-97); Mean Platelet Volume 7.9 fL (7.4-10.4); Platelet Count 86 10^3/uL (150-450); Red Blood Count 2.53 10^6 /uL (3.70-4.87); Red Cell Distribution Width 30 % (10-15); White Blood Count 10.7 10^3/uL (3.5-10.8)
[2020-12-30] MEDS: Cholecalciferol (VIT D3) 1,000 unit TAB PO SCH (08:55)
[2020-12-30] MEDS: Sulfamethox/Trimethoprim DS TAB 800/160 mg PO SCH ×3 (08:55→20:37)
[2020-12-30] MEDS: Lactulose 30 ml UDC PO SCH ×3 (12:12→20:37)
[2020-12-30] MEDS ORDERED: Furosemide 20 mg/2 ml IV VIAL IV SLOW PU ONE (12:24)
[2020-12-31] MEDS: Albuterol/Ipratropium NEB.SOL (2.5/0.5 MG) 3 ML NEB.SOLN INH SCH ×3 (00:40→08:10)
[2020-12-31] MEDS: methylPREDNISolone SOD 40 mg/ml 1 ml VIAL IV SCH ×3 (06:03→20:33)
[2020-12-31 07:07] LABS: Hematocrit 27 % (35-47); Mean Corpuscular HGB Conc 34 g/dL (31-36); Mean Corpuscular Hemoglobin 35 pg (27-31); Mean Corpuscular Volume 104 fL (80-97); Mean Platelet Volume 8.6 fL (7.4-10.4); Platelet Count 67 10^3/uL (150-450); Red Blood Count 2.55 10^6 /uL (3.70-4.87); Red Cell Distribution Width 29 % (10-15)
[2020-12-31 07:12] LABS: BUN/Creatinine Ratio 25.7 (8-20); Calcium 9.8 mg/dL (8.6-10.3); EGFR African American 34.7 (>60); EGFR Non-African American 28.7 (>60); Potassium 4.8 mmol/L (3.5-5.0)
[2020-12-31 07:41] LABS: ABS Lymphocytes 0.3 10^3/ul (1.0-4.8); ABS Monocytes 0.4 10^3/ul (0-0.8); ABS Neutrophils 8.3 10^3/ul (1.5-7.7); Lymphocyte % 3.4 %; Nucleated Red Blood Cells % 0.1
[2020-12-31] MEDS: Lactulose 30 ml UDC PO SCH ×3 (09:09→20:33)
[2020-12-31] MEDS: Cholecalciferol (VIT D3) 1,000 unit TAB PO SCH (09:09)
[2020-12-31] MEDS: Sulfamethox/Trimethoprim DS TAB 800/160 mg PO SCH ×3 (09:09→20:33)
[2020-12-31] MEDS: Albuterol/Ipratropium NEB.SOL (2.5/0.5 MG) 3 ML NEB.SOLN INH PRN (16:47)
[2021-01-01] MEDS: methylPREDNISolone SOD 40 mg/ml 1 ml VIAL IV SCH ×3 (04:25→19:58)
[2021-01-01 04:48] LABS: ABS Lymphocytes 0.3 10^3/ul (1.0-4.8); ABS Monocytes 0.4 10^3/ul (0-0.8); Eosinophil % 0.2 %; Hematocrit 26 % (35-47); Hemoglobin 8.7 g/dL (12.0-16.0); Lymphocyte % 3.1 %; Mean Corpuscular HGB Conc 34 g/dL (31-36); Mean Corpuscular Hemoglobin 35 pg (27-31); Mean Corpuscular Volume 105 fL (80-97); Mean Platelet Volume 9.7 fL (7.4-10.4); Nucleated Red Blood Cells % 0.1; Platelet Count 67 10^3/uL (150-450); Red Blood Count 2.48 10^6 /uL (3.70-4.87); Red Cell Distribution Width 29 % (10-15); White Blood Count 8.7 10^3/uL (3.5-10.8)
[2021-01-01 05:05] LABS: Albumin 2.2 g/dL (3.2-5.2); BUN/Creatinine Ratio 29.4 (8-20); Calcium 9.3 mg/dL (8.6-10.3); EGFR African American 33.6 (>60); EGFR Non-African American 27.7 (>60); Globulin 2.3 g/dL (2-4); Magnesium 2.5 mg/dL (1.9-2.7); Phosphorus 4.1 mg/dL (2.5-5.0); Potassium 4.8 mmol/L (3.5-5.0); Total Bilirubin 1.8 mg/dL (0.2-1.0); Total Protein 4.5 g/dL (6.4-8.9)
[2021-01-01] MEDS: Cholecalciferol (VIT D3) 1,000 unit TAB PO SCH (09:12)
[2021-01-01] MEDS: Lactulose 30 ml UDC PO SCH ×2 (09:13→19:58)
[2021-01-01] MEDS: Sulfamethox/Trimethoprim DS TAB 800/160 mg PO SCH ×3 (09:13→19:59)
[2021-01-02] MEDS: methylPREDNISolone SOD 40 mg/ml 1 ml VIAL IV SCH ×4 (01:14→20:06)
[2021-01-02 05:33] LABS: ABS Lymphocytes 0.2 10^3/ul (1.0-4.8); ABS Monocytes 0.2 10^3/ul (0-0.8); ABS Neutrophils 6.4 10^3/ul (1.5-7.7); Eosinophil % 0.2 %; Hematocrit 20 % (35-47); Hemoglobin 6.6 g/dL (12.0-16.0); Lymphocyte % 2.6 %; Mean Corpuscular HGB Conc 34 g/dL (31-36); Mean Corpuscular Hemoglobin 36 pg (27-31); Mean Corpuscular Volume 106 fL (80-97); Mean Platelet Volume 8.4 fL (7.4-10.4); Nucleated Red Blood Cells % 0.1; Platelet Count 34 10^3/uL (150-450); Red Blood Count 1.85 10^6 /uL (3.70-4.87); Red Cell Distribution Width 29 % (10-15); White Blood Count 6.8 10^3/uL (3.5-10.8)
[2021-01-02 05:54] LABS: BUN/Creatinine Ratio 36.6 (8-20); Calcium 6.7 mg/dL (8.6-10.3); EGFR African American 52.1 (>60); Magnesium 1.8 mg/dL (1.9-2.7); Potassium 3.8 mmol/L (3.5-5.0)
[2021-01-02 07:06] LABS: Schistocytes 1+
[2021-01-02] MEDS ORDERED: Furosemide 20 mg/2 ml IV VIAL IV SLOW PU ONE (08:19)
[2021-01-02] MEDS ORDERED: Magnesium Sulfate 2 gm BAG 2 GM/50 ML BAG IVPB ONE (08:19)
[2021-01-02] MEDS: Cholecalciferol (VIT D3) 1,000 unit TAB PO SCH (09:02)
[2021-01-02] MEDS: Sulfamethox/Trimethoprim DS TAB 800/160 mg PO SCH ×3 (09:02→21:03)
[2021-01-02] MEDS: Lactulose 30 ml UDC PO SCH (09:07)
[2021-01-02 17:29] LABS: Hematocrit 30 % (35-47); Hemoglobin 10.1 g/dL (12.0-16.0); Mean Corpuscular HGB Conc 34 g/dL (31-36); Mean Corpuscular Hemoglobin 35 pg (27-31); Mean Corpuscular Volume 102 fL (80-97); Platelet Count 51 10^3/uL (150-450); Red Blood Count 2.92 10^6 /uL (3.70-4.87); Red Cell Distribution Width 29 % (10-15); White Blood Count 11.7 10^3/uL (3.5-10.8)
[2021-01-02 18:08] LABS: Ferritin 225.6 ng/mL (11-307)
[2021-01-02 18:12] LABS: Folate 7.95 ng/mL (>3.99)
[2021-01-03] MEDS: methylPREDNISolone SOD 40 mg/ml 1 ml VIAL IV SCH ×4 (02:33→20:04)
[2021-01-03 05:25] LABS: ABS Basophils 0.1 10^3/ul (0-0.2); ABS Lymphocytes 0.2 10^3/ul (1.0-4.8); ABS Monocytes 0.4 10^3/ul (0-0.8); ABS Neutrophils 9.4 10^3/ul (1.5-7.7); Eosinophil % 0.2 %; Hematocrit 30 % (35-47); Hemoglobin 10.3 g/dL (12.0-16.0); Mean Corpuscular HGB Conc 34 g/dL (31-36); Mean Corpuscular Hemoglobin 35 pg (27-31); Mean Corpuscular Volume 101 fL (80-97); Mean Platelet Volume 8.7 fL (7.4-10.4); Nucleated Red Blood Cells % 0.2; Platelet Count 46 10^3/uL (150-450); Red Blood Count 2.97 10^6 /uL (3.70-4.87); Red Cell Distribution Width 28 % (10-15); White Blood Count 10.1 10^3/uL (3.5-10.8)
[2021-01-03 05:42] LABS: Albumin 2.4 g/dL (3.2-5.2); BUN/Creatinine Ratio 34.8 (8-20); Calcium 9.3 mg/dL (8.6-10.3); EGFR African American 32.1 (>60); EGFR Non-African American 26.5 (>60); Globulin 2.5 g/dL (2-4); Total Bilirubin 2.9 mg/dL (0.2-1.0); Total Protein 4.9 g/dL (6.4-8.9)
[2021-01-03 05:44] LABS: Potassium 5.6 mmol/L (3.5-5.0)
[2021-01-03] MEDS: Sulfamethox/Trimethoprim DS TAB 800/160 mg PO SCH ×3 (09:16→20:03)
[2021-01-03] MEDS: Lactulose 30 ml UDC PO SCH (09:16)
[2021-01-03] MEDS: Cholecalciferol (VIT D3) 1,000 unit TAB PO SCH (09:17)
[2021-01-04] MEDS: methylPREDNISolone SOD 40 mg/ml 1 ml VIAL IV SCH ×3 (03:05→14:09)
[2021-01-04 06:06] LABS: Albumin 2.4 g/dL (3.2-5.2); BUN/Creatinine Ratio 39.9 (8-20); Calcium 9.2 mg/dL (8.6-10.3); EGFR African American 32.9 (>60); EGFR Non-African American 27.2 (>60); Globulin 2.4 g/dL (2-4); Magnesium 2.8 mg/dL (1.9-2.7); Total Bilirubin 3.4 mg/dL (0.2-1.0); Total Protein 4.8 g/dL (6.4-8.9)
[2021-01-04 06:07] LABS: ABS Lymphocytes 0.2 10^3/ul (1.0-4.8); ABS Monocytes 0.4 10^3/ul (0-0.8); ABS Neutrophils 11.9 10^3/ul (1.5-7.7); Hematocrit 30 % (35-47); Hemoglobin 10.1 g/dL (12.0-16.0); Lymphocyte % 1.7 %; Mean Corpuscular HGB Conc 34 g/dL (31-36); Mean Corpuscular Hemoglobin 35 pg (27-31); Mean Corpuscular Volume 102 fL (80-97); Mean Platelet Volume 9.4 fL (7.4-10.4); Nucleated Red Blood Cells % 0.1; Platelet Count 44 10^3/uL (150-450); Red Blood Count 2.91 10^6 /uL (3.70-4.87); Red Cell Distribution Width 29 % (10-15); White Blood Count 12.6 10^3/uL (3.5-10.8)
[2021-01-04 06:30] LABS: Potassium 6.1 mmol/L (3.5-5.0)
[2021-01-04] MEDS ORDERED: Dextrose 50% Syringe 50 ml 25 GM/50 ML SYRINGE IV PUSH ONE (07:26)
[2021-01-04] MEDS ORDERED: Sodium Polystyrene ORAL.SUSP 15 GM/60 ML BTL PO ONE (07:27)
[2021-01-04] MEDS ORDERED: Furosemide 20 mg/2 ml IV VIAL IV SLOW PU ONE (07:55)
[2021-01-04] MEDS ORDERED: Patiromer POWDER 8.4 GM PAK PO ONE (08:27)
[2021-01-04] MEDS: Cholecalciferol (VIT D3) 1,000 unit TAB PO SCH (08:39)
[2021-01-04] MEDS: Sulfamethox/Trimethoprim DS TAB 800/160 mg PO SCH ×2 (08:39→14:15)
[2021-01-04] MEDS: Lactulose 30 ml UDC PO SCH ×2 (08:40→08:52)
[2021-01-04 11:10] LABS: Urine Appearance Turbid; Urine Bilirubin Negative (Negative); Urine Blood Negative (Negative); Urine Color Yellow; Urine Glucose Negative (Negative); Urine Ketones Negative (Negative); Urine Nitrite Negative (Negative); Urine Protein Negative (Negative); Urine Specific Gravity 1.015 (1.010-1.030); Urine Urobilinogen Negative (Negative)
[2021-01-04 11:22] LABS: Urine Bacteria 1+ (Absent); Urine Red Blood Cell Trace(0-2/hpf) (Absent); Urine Squamous Epithelial Cell Present (Absent); Urine White Blood Cell 1+(6-10/hpf) (Absent)
[2021-01-04] MEDS: Albuterol/Ipratropium NEB.SOL (2.5/0.5 MG) 3 ML NEB.SOLN INH PRN (13:04)
[2021-01-04] MEDS ORDERED: Lidocaine 2% JELLY 5 ML TUBE LIDO2GEL7 TOPICAL ONE (13:50)
[2021-01-04] MEDS ORDERED: Lorazepam PYXIS KEY PRN (13:52)
[2021-01-04] MEDS ORDERED: LORazepam 2 mg VIAL 1 ml ONE (13:57)
[2021-01-04] MEDS ORDERED: Lorazepam PYXIS KEY ONE (13:57)
[2021-01-04] MEDS ORDERED: Lidocaine 2% JELLY 6 ML TOPICAL ONE (14:00)
[2021-01-04] MEDS: LORazepam 2 mg VIAL 1 ml IV PUSH PRN (14:02)
[2021-01-04] MEDS: Sulfamethox/Trimethoprim SUSP 800-160mg/20 ML UDC PO SCH ×2 (15:52→20:34)
[2021-01-04] MEDS ORDERED: Morphine PCA ADULT 5 MG/ML 30 ML PCA SCH (16:30)
[2021-01-04 21:11] VITALS: BP 104/76
[2021-01-05] MEDS: LORazepam 2 mg VIAL 1 ml IV PUSH PRN ×8 (01:10→23:12)
[2021-01-05] MEDS ORDERED: LORazepam 2 mg VIAL 1 ml IV PUSH ONE (06:10)
[2021-01-05] MEDS: methylPREDNISolone SOD 40 mg/ml 1 ml VIAL IV SCH (07:35)
[2021-01-05] MEDS ORDERED: Morphine PCA ADULT 5 MG/ML 30 ML PCA SCH (07:51)
== END 2021-01-05 23:29 | disposition expired | DRG 193 ==
LOC: CHOA 11:50 → MED 12:41 → ICU 12-27 18:22
PROVIDERS: ADMIT Internal Medicine Hematology & Oncology; ATTEND Internal Medicine